=== PATIENT | male | born 1940 | race Caucasian/White ===

== ENCOUNTER → 2017-01-07 | Outpatient (CLI) | payer OTHER ==
[2017-01-07 13:55] LABS: ALT/SGPT 23 U/L (12-78); AST/SGOT 17 U/L (15-37); BLOOD UREA NITROGEN 14 mg/dl (7-18); BUN/CREATININE RATIO 16.4 (10-20); CALCIUM 9.3 mg/dl (8.5-10.1); CARBON DIOXIDE 29 mmol/L (21-32); CHLORIDE 99 mmol/L (98-107); CREATININE 0.88 mg/dl (0.60-1.40); GLUCOSE 99 mg/dl (70-99); POTASSIUM 3.9 mmol/L (3.5-5.1); SODIUM 137 mmol/L (136-145)
[2017-01-07 14:03] LABS: % FREE PSA 13.4 %; ALKALINE PHOSPHATASE 121 U/L (45-117); AMYLASE 44 U/L (25-115); CHOLESTEROL 135 mg/dl (0-200); CHOLESTEROL/HDL RATIO 3.5; FREE PSA 0.74 ng/ml; HDL CHOLESTEROL 39 mg/dl; LDL CHOLESTEROL CALCULATED 72 mg/dl; TRIGLYCERIDES 121 mg/dl (0-150); VERY LOW DENSITY LIPOPROT CALC 24 mg/dl
== END | disposition home or self-care (01) ==
LOC: C.LABMFLN 10:31
PROVIDERS: ATTEND Family Medicine
DX: E78.00 Pure hypercholesterolemia, unspecified (principal); I10 Essential (primary) hypertension; E03.9 Hypothyroidism, unspecified; R97.20 Elevated prostate specific antigen [PSA]; R11.0 Nausea; R63.4 Abnormal weight loss

== ENCOUNTER → 2017-05-12 | Outpatient (CLI) | payer OTHER ==
[2017-05-12 18:29] LABS: % FREE PSA 16.2 %; FREE PSA 0.88 ng/ml; PROSTATE SPECIFIC ANTIGEN 5.47 ng/ml (0.000-4.000)
[2017-05-12 20:06] LABS: LYME DISEASE AB IGG NEG (NEG); LYME DISEASE AB IGM NEG (NEG)
== END | disposition home or self-care (01) ==
LOC: C.LABMFLN 14:23
PROVIDERS: ATTEND Family Medicine
DX: L03.119 Cellulitis of unspecified part of limb (principal); R97.20 Elevated prostate specific antigen [PSA]

== ENCOUNTER → 2017-08-05 | Outpatient (CLI) | payer OTHER ==
[2017-08-05 13:43] LABS: ALT/SGPT 23 U/L (12-78); AST/SGOT 19 U/L (15-37); BLOOD UREA NITROGEN 20 mg/dl (7-18); BUN/CREATININE RATIO 20.1 (10-20); CALCIUM 9.4 mg/dl (8.5-10.1); CARBON DIOXIDE 26 mmol/L (21-32); CHLORIDE 98 mmol/L (98-107); CHOLESTEROL 132 mg/dl (0-200); CREATININE 0.97 mg/dl (0.60-1.40); GLUCOSE 94 mg/dl (70-99); POTASSIUM 4.2 mmol/L (3.5-5.1); SODIUM 134 mmol/L (136-145)
[2017-08-05 13:54] LABS: CHOLESTEROL/HDL RATIO 3.9; HDL CHOLESTEROL 34 mg/dl; LDL CHOLESTEROL CALCULATED 68 mg/dl; TRIGLYCERIDES 148 mg/dl (0-150); VERY LOW DENSITY LIPOPROT CALC 30 mg/dl
== END | disposition home or self-care (01) ==
LOC: C.LABMFLN 07:44
PROVIDERS: ATTEND Family Medicine
DX: E78.00 Pure hypercholesterolemia, unspecified (principal); I10 Essential (primary) hypertension; E03.9 Hypothyroidism, unspecified

== ENCOUNTER → 2017-12-23 | Outpatient (CLI) | payer OTHER ==
[2017-12-23 13:34] LABS: ALBUMIN 4.1 gm/dl (3.4-5.0); ALT/SGPT 28 U/L (12-78); AST/SGOT 21 U/L (15-37); BLOOD UREA NITROGEN 21 mg/dl (7-18); CALCIUM 9.6 mg/dl (8.5-10.1); CARBON DIOXIDE 27 mmol/L (21-32); CHOLESTEROL 162 mg/dl (0-200); CREATININE 0.99 mg/dl (0.60-1.40); GLUCOSE 96 mg/dl (70-99); POTASSIUM 3.9 mmol/L (3.5-5.1); SODIUM 135 mmol/L (136-145)
[2017-12-23 13:45] LABS: ALKALINE PHOSPHATASE 91 U/L (45-117); LDL CHOLESTEROL CALCULATED 88 mg/dl; TOTAL PROTEIN 8.7 gm/dl (6.4-8.2)
== END | disposition home or self-care (01) ==
LOC: C.LABMFLN 09:02
PROVIDERS: ATTEND Family Medicine
DX: E78.00 Pure hypercholesterolemia, unspecified (principal); I10 Essential (primary) hypertension; E03.9 Hypothyroidism, unspecified; W57.XXXA Bitten or stung by nonvenomous insect and other nonvenomous arthropods, initial encounter

== ENCOUNTER 2018-01-29 18:01 | Inpatient (IN) | payer OTHER ==
[~2018-01-29] VITALS: Ht 175.3 cm; Wt 79.3 kg
[2018-01-29] MEDS ORDERED: SODIUM CHLORIDE 0.9% 1000ML 1,000 ML IV STA ×2 (18:17→19:30)
--- NOTE | 2018-01-29 18:28 | EMERGENCY ROOM VISIT NOTE ---
History Report prepared by Roosevelt: Byron Tadeo Under the Supervision of: Dr. Mariano Wadsworth M.D. First contact with patient: 18:10 Chief Complaint: RECTAL BLEEDING Stated Complaint: RECTAL BLEEDING Nursing Triage Summary: Pt presents with and son. states small amt of rectal bleeding on Mon "just when he wipes". Started to get worse last night, having bright red blood every hour on the hour." Denies hx of GI bleed. Denies pain or n/v. History of Present Illness The patient is a 77 year old male who presents to the Emergency Room with complaints of worsening rectal bleeding that began 1 week ago. The patient has a fair amount of arthritis which he takes Meloxicam for (recently started). He notes black stools this week which started having blood in them. He saw his PCP earlier today who noted that he became orthostatic when standing. His rectal exam revealed that he became heme positive with an enlarged prostate. His PCP suggested that he be sent to the ED for further evaluation. The patient states that he has limited PO intake and that his back pain is unchanged from baseline. He takes Aspirin (81 mg). He denies Coumadin and Plavix. He denies nausea, vomiting, abdominal pain, recent falls, and injuries. He has a history significant for hemorrhoids, diverticulitis, and hernia repair. Of note, he had a colonoscopy in 2014. Source of History: patient, transfer records, family Onset: 1 week ago Position: other (rectum) Quality: other (bleeding) Timing: worsening Associated Symptoms: No nausea, No vomiting, No abdominal pain Note: Patient reports black stools with blood. Patient denies recent falls and injuries. Review of Systems See HPI for pertinent positives & negatives. A total of 10 systems reviewed and were otherwise negative. Past Medical & Surgical Medical Problems: (1) Diverticulitis (2) Hemorrhoid Surgical Problems: (1) Hx of hernia repair Family History Patient reports no known family medical history. Social History Smoking Status: Former Smoker Alcohol Use: none Drug Use: none Marital Status: Housing Status: lives with significant other Current/Historical Medications Scheduled Acetaminophen (Tylenol), 1,000 MG PO AMPM Amlodipine (Norvasc), 5 MG PO DAILY Ascorbic Acid (Vitamin C), 500 MG PO QPM Aspirin (Aspirin Ec), 81 MG PO QPM Atorvastatin (Lipitor), 20 MG PO QPM Azelastine Hcl (Astepro), 2 SPRY LILA DAILY Budesonide/Formoterol Fumarate (Symbicort 80/4.5 Inhaler), 2 PUFFS INH BID Levothyroxine Sodium (Synthroid), 100 MCG PO DAILY Meloxicam (Mobic), 1 TAB PO DAILY Omeprazole (Prilosec), 40 MG PO DAILY Prednisolone Acetate (Ophth) (Pred Forte 1% Oph), 1 DROPS OPL BID Sertraline (Zoloft), 50 MG PO QPM Vitamin E (E-400), 400 UNITS PO DAILY Allergies Coded Allergies: No Known Allergies (Unverified , 01/29/18) Physical Exam Vital Signs Date Time Temp Pulse Resp B/P (MAP) Pulse Ox O2 Delivery O2 Flow Rate FiO2 01/29/18 20:27 65 20 124/84 93 Room Air 01/29/18 20:26 66 01/29/18 18:59 69 20 133/74 95 Room Air 67 136/84 92 92/68 01/29/18 18:04 36.6 86 18 126/81 94 Room Air Physical Exam GENERAL: Patient is well appearing and in no acute distress. EYES: No scleral icterus, unremarkable pupils. ENT: Mucous membranes moist, no nasal congestion. NECK: No masses appreciated, no meningismus, trachea is midline. RESPIRATORY: No dyspnea. Clear to auscultation and equal bilaterally. No wheeze , no rhonchi. CARDIOVASCULAR: Regular rate and rhythm. No murmurs, rubs, gallops appreciated. GASTROINTESTINAL: Abdomen soft, nontender, no peritonitis. Bowel sounds positive. No masses appreciated. BACK: No midline tenderness, no CVA tenderness EXTREMITIES: Normal motion all extremities, no cyanosis, no edema. NEUROLOGIC: Alert and oriented, no acute motor or sensory deficits, no focal weakness, cranial nerves grossly intact. SKIN: No rash, no jaundice, no diaphoresis. Medical Decision & Procedures Laboratory Results Test 01/29/18 18:45 Prothrombin Time 10.1 SECONDS (9.0-12.0) Prothromb Time International Ratio 1.0 (0.9-1.1) Activated Partial Thromboplast Time 26.8 SECONDS (21.0-31.0) Partial Thromboplastin Ratio 1.0 Direct Bilirubin < 0.1 mg/dl (0-0.2) Laboratory results as reviewed by ri. Medications Administered Medications (Trade) Dose Ordered Sig/Angy Route Start Time Stop Time Status Last Admin Dose Admin Sodium Chloride 1,000 ml @ 999 mls/hr Q1H1M STAT IV 01/29/18 18:17 01/29/18 19:17 DC 01/29/18 19:00 999 MLS/HR Pantoprazole Sodium 40 mg/ Syringe 10 ml @ 5 mls/min NOW ONCE IV 01/29/18 18:30 01/29/18 18:31 DC 01/29/18 19:02 5 MLS/MIN Sodium Chloride 1,000 ml @ 100 mls/hr Q10H STAT IV 01/29/18 19:30 01/29/18 22:07 DC 01/29/18 20:25 100 MLS/HR Pantoprazole Sodium 40 mg/ Dextrose 110 ml @ 440 mls/hr TODAY@1945 ONCE IV 01/29/18 19:45 01/29/18 19:59 DC 01/29/18 20:24 440 MLS/HR Pantoprazole Sodium 40 mg/ Dextrose 100 ml @ 20 mls/hr Q5H IV 01/29/18 19:45 01/30/18 00:44 DC 01/29/18 20:24 20 MLS/HR ECG Per My Interpretation Indication: other (Rectal bleeding) Rate (beats per minute): 65 Rhythm: normal sinus Findings: 1st degree AV block, no acute ischemic change, no ectopy, other (QTc of 422) ED Course 1809: The patient was evaluated in room B4. A complete history and physical exam was performed. 1938: Discussed the patient's case with Dr. Kyara Travis. The patient will be evaluated for further treatment and disposition. 1954: Upon reevaluation, the patient is resting comfortably. Discussed results and treatment plan with the patient. He verbalized understanding and agreement with the treatment plan. The patient will be evaluated for further management. Medical Decision Differential: Diverticulitis, AVM, Coagulopathy, Colitis, Malignancy, Upper GI bleed, Fissure, Hemorrhoids, amongst other pathologies entertained. 77 yr old male arrives for evaluation of rectal bleeding. Reviewed with his PCP who sent him over prior to patient arriving. Patient is orthostatic with large bloody bowel movements following starting Mobic 2 weeks ago. He initially had black stool turning in to bloody thus the Protonix bolus but given BRBPR there is chance this is just a higher up diverticular bleed ( especially given baseline BUN). Regardless he is stable while in bed, was given some IV fluids and looking well. Will be kept NPO. Reviewed with GI who asked I add on Protonix gtt, keep NPO, admit to hospitalist and repeat HgB 6 hours from initial. Patient and family comfortable with this plan. Type/Cross ordered with hold as not requiring transfusion just yet. Medication Reconcilliation Current Medication List: was personally reviewed by me Blood Pressure Screening Patient's blood pressure: Normal blood pressure Blood pressure disposition: Did not require urgent referral Consults Time Called: 1934 Consulting Physician: Dr. Kyara Travis Returned Call: 1938 Discussed the patient's case. The patient will be evaluated for further treatment and disposition. Impression Primary Impression: GI bleed Additional Impression: Hypotension Scribe Attestation The scribe's documentation has been prepared under my direction and personally reviewed by me in its entirety. I confirm that the note above accurately reflects all work, treatment, procedures, and medical decision making performed by me. Departure Information Dispostion Being Evaluated By Hospitalist Referrals Estevan Trejo M.D. (PCP) Patient Instructions My [facility] Problem Qualifiers
[2018-01-29] MEDS ORDERED: PANTOprazole INJ 40 MG in SYRINGE 0 ML IV ONE (18:30)
[2018-01-29 19:02] LABS: BASO % 0.9 %; BASO ABS # 0.08 K/uL (0-0.2); EOS ABS # 0.27 K/uL (0-0.5); HEMATOCRIT 43.1 % (42-52); HEMOGLOBIN 15.2 g/dL (14.0-18.0); IG# 0.03 K/uL (0.00-0.02); MEAN CELL VOLUME 89.6 fL (80-100); MEAN CORPUSCULAR HEMOGLOBIN 31.6 pg (25-34); MEAN CORPUSCULAR HGB CONC 35.3 g/dl (32-36); MEAN PLATELET VOLUME 8.7 fL (7.4-10.4); MONO % 9.1 %; MONO ABS # 0.83 K/uL (0.11-0.59); NEUT % 63.7 %; NEUT ABS # 5.84 K/uL (1.4-6.5); PLATELET COUNT 291 K/uL (130-400); RED CELL DISTRIBUTION WIDTH CV 13.1 % (11.5-14.5); WHITE BLOOD COUNT 9.15 K/uL (4.8-10.8)
[2018-01-29 19:19] LABS: PTT PATIENT 26.8 SECONDS (21.0-31.0)
[2018-01-29 19:27] LABS: ALT/SGPT 27 U/L (12-78); AST/SGOT 19 U/L (15-37); BLOOD UREA NITROGEN 20 mg/dl (7-18); CALCIUM 8.9 mg/dl (8.5-10.1); CARBON DIOXIDE 26 mmol/L (21-32); CREATININE 1.04 mg/dl (0.60-1.40); GLUCOSE 110 mg/dl (70-99); POTASSIUM 3.9 mmol/L (3.5-5.1); SODIUM 137 mmol/L (136-145)
[2018-01-29 19:29] LABS: ALKALINE PHOSPHATASE 110 U/L (45-117); TOTAL PROTEIN 7.7 gm/dl (6.4-8.2)
[2018-01-29] MEDS ORDERED: PANTOprazole INJ 40 MG in DEXTROSE 5% 100ML 100 ML IV ONE (19:45)
[2018-01-29] MEDS ORDERED: PANTOprazole INJ 40 MG in DEXTROSE 5% 100ML IV SCH (19:45)
[2018-01-29] MEDS ORDERED: MAGNESIUM HYDROXIDE SUSP 30 ML UDC PO PRN (20:15)
[2018-01-29] MEDS ORDERED: ACETAMINOPHEN 325 MG TAB PO PRN (20:15)
[2018-01-29] MEDS ORDERED: ONDANSETRON INJ 2 MG/ML 2 ML VIAL IV PRN (20:15)
[2018-01-29] MEDS ORDERED: ALUMINUM/MAGNESIUM/SIMETH (MAALOX MAX) 30 ML UDC PO PRN (20:15)
[2018-01-29] MEDS ORDERED: PRED1SUS3 OPL (20:25)
[2018-01-29] MEDS ORDERED: AZEL0.15 NAE (20:35)
[2018-01-29] MEDS ORDERED: OMEP40CA41 PO (20:35)
[2018-01-29] MEDS ORDERED: ACET-1256 PO (20:35)
[2018-01-29] MEDS ORDERED: ASPI81TA28 PO (20:35)
[2018-01-29] MEDS ORDERED: SYMIN/8045 INH (20:35)
[2018-01-29] MEDS ORDERED: ASCO1CAP3 PO (20:35)
[2018-01-29] MEDS ORDERED: VITACAP37 PO (20:35)
[2018-01-29] MEDS ORDERED: AMLO-110 PO (20:35)
[2018-01-29] MEDS ORDERED: LEVO100T PO (20:35)
[2018-01-29] MEDS ORDERED: SERT50TA PO (20:35)
[2018-01-29] MEDS ORDERED: MELO7.5T5 PO (20:35)
[2018-01-29] MEDS ORDERED: ATOR-22 PO (20:35)
[2018-01-29 20:41] LABS: HEMATOCRIT 38.1 % (42-52); HEMOGLOBIN 13.4 g/dL (14.0-18.0)
--- NOTE | 2018-01-29 21:25 | History and Physical ---
History & Physical Date & Time of Service: Jan 29, 2018 at 21:01 Chief Complaint: Rectal Bleeding Primary Care Physician: Estevan Trejo M.D. History of Present Illness Source: patient, family, clinic records, hospital records 77 yo M h/o GERD on omeprazole, HTN on amlodipine Arthritis, recently started Meloxicam presenting with blood stool. Initially stool was red then eventually black. HE reports 11 blood stools in all since last night. 4 days ago had red blood in tissue but has since resolved. He denies pain, n/v, fevers, chills, Chest pain, palpitation no previous similar episodes. He takes ASA 81 mg. He is not on any other anticoagulation. He was started on Meloxicam 2 wks ago. Saw pcp at 4 pm today ( Dr. Trejo [facility]). He told patient he was suspected meloxicam as potential contributor and recommended to go to ED. He also reports some lightheadedness while at the clinic when going from sitting to standing position. He reports occasional SOB but attributes to asthma. In 2014 Colonoscopy, patient reports he had polyps removed and diverticulosis were found. Past Medical/Surgical History Medical Problems: Diverticulitis Hemorrhoid Asthma Hypertension HLD Hypothyroidism GERD Arthritis Depression Surgical Problems: Hx of hernia repair Cataract Surgery Shoulder Surgery Social History Smoking Status: Former Smoker Alcohol Use: none Drug Use: none Marital Status: Housing status: lives with family Occupational Status: retired Allergies Coded Allergies: No Known Allergies (Unverified , 01/29/18) Home Medications Scheduled Acetaminophen (Tylenol), 1,000 MG PO AMPM Amlodipine (Norvasc), 5 MG PO DAILY Ascorbic Acid (Vitamin C), 500 MG PO QPM Aspirin (Aspirin Ec), 81 MG PO QPM Atorvastatin (Lipitor), 20 MG PO QPM Azelastine Hcl (Astepro), 2 SPRY LILA DAILY Budesonide/Formoterol Fumarate (Symbicort 80/4.5 Inhaler), 2 PUFFS INH BID Levothyroxine Sodium (Synthroid), 100 MCG PO DAILY Meloxicam (Mobic), 1 TAB PO DAILY Omeprazole (Prilosec), 40 MG PO DAILY Prednisolone Acetate (Ophth) (Pred Forte 1% Oph), 1 DROPS OPL BID Sertraline (Zoloft), 50 MG PO QPM Vitamin E (E-400), 400 UNITS PO DAILY Review of Systems Constitutional: No fever, No chills, No weakness, No fatigue Respiratory: + shortness of breath (occasional (at baseline)), No cough, No sputum Cardiovascular: No chest pain, No edema, No palpitations Abdomen: + GI bleeding, No pain, No nausea, No vomiting, No diarrhea Genitourinary - Male: No hematuria, No dysuria, No urinary frequency Hematologic / Lymphatic: + abnormal bleeding/bruising (GI Bleed) Integumentary: No rash, No itch Physical Exam Vital Signs Date Time Temp Pulse Resp B/P (MAP) Pulse Ox O2 Delivery O2 Flow Rate FiO2 01/29/18 20:27 65 20 124/84 93 Room Air 01/29/18 20:26 66 01/29/18 18:59 69 20 133/74 95 Room Air 67 136/84 92 92/68 01/29/18 18:04 36.6 86 18 126/81 94 Room Air General Appearance: WD/WN, no apparent distress Eyes: PERRL, EOMI, sclerae normal Neck: supple, no adenopathy, trachea midline Respiratory/Chest: chest non-tender, lungs clear, normal breath sounds Cardiovascular: regular rate, rhythm, no edema, no murmur, normal peripheral pulses Abdomen/GI: normal bowel sounds, non tender, soft, no organomegaly Back: normal inspection, normal range of motion Extremities/Musculoskelatal: no calf tenderness, normal capillary refill, no pedal edema Neurologic/Psych: camp head counselor II-XII nml as tested (gross), alert, normal mood/affect, oriented x 3 Skin: normal color, warm/dry Diagnostics Laboratory Results Results Past 24 Hours Test 01/29/18 18:45 01/29/18 20:20 Range/Units White Blood Count 9.15 4.8-10.8 K/uL Red Blood Count 4.81 4.7-6.1 M/uL Hemoglobin 15.2 13.4 14.0-18.0 g/dL Hematocrit 43.1 38.1 42-52 % Mean Corpuscular Volume 89.6 80-100 fL Mean Corpuscular Hemoglobin 31.6 25-34 pg Mean Corpuscular Hemoglobin Concent 35.3 32-36 g/dl Platelet Count 291 130-400 K/uL Mean Platelet Volume 8.7 7.4-10.4 fL Neutrophils (%) (Auto) 63.7 % Lymphocytes (%) (Auto) 23.0 % Monocytes (%) (Auto) 9.1 % Eosinophils (%) (Auto) 3.0 % Basophils (%) (Auto) 0.9 % Neutrophils # (Auto) 5.84 1.4-6.5 K/uL Lymphocytes # (Auto) 2.10 1.2-3.4 K/uL Monocytes # (Auto) 0.83 0.11-0.59 K/uL Eosinophils # (Auto) 0.27 0-0.5 K/uL Basophils # (Auto) 0.08 0-0.2 K/uL RDW Standard Deviation 43.0 36.4-46.3 fL RDW Coefficient of Variation 13.1 11.5-14.5 % Immature Granulocyte % (Auto) 0.3 % Immature Granulocyte # (Auto) 0.03 0.00-0.02 K/uL Prothrombin Time 10.1 9.0-12.0 SECONDS Prothromb Time International Ratio 1.0 0.9-1.1 Activated Partial Thromboplast Time 26.8 21.0-31.0 SECONDS Partial Thromboplastin Ratio 1.0 Sodium Level 137 136-145 mmol/L Potassium Level 3.9 3.5-5.1 mmol/L Chloride Level 104 98-107 mmol/L Carbon Dioxide Level 26 21-32 mmol/L Anion Gap 7.0 3-11 mmol/L Blood Urea Nitrogen 20 7-18 mg/dl Creatinine 1.04 0.60-1.40 mg/dl Est Creatinine Clear Calc Drug Dose 59.5 ml/min Estimated GFR () 79.9 Estimated GFR (Non- 68.9 BUN/Creatinine Ratio 19.2 10-20 Random Glucose 110 70-99 mg/dl Calcium Level 8.9 8.5-10.1 mg/dl Total Bilirubin 0.4 0.2-1 mg/dl Direct Bilirubin < 0.1 0-0.2 mg/dl Aspartate Amino Transf (AST/SGOT) 19 15-37 U/L Alanine Aminotransferase (ALT/SGPT) 27 12-78 U/L Alkaline Phosphatase 110 45-117 U/L Total Protein 7.7 6.4-8.2 gm/dl Albumin 4.0 3.4-5.0 gm/dl Impression Assessment and Plan 77 yo M h/o GERD on omeprazole, HTN on amlodipine Arthritis, recently started Meloxicam presenting with blood stool Admit to Tele - GI Bleed likely upper given black stool and recent start of new NSAID Gastritis vs Ulcer, lack of pain makes ulcer less likely, varices unlikely given normal lfts. Recent start of Meloxicam could indicate NSAID Hold Meloxicam Start Protonix drip Gastroenterology consulted. F/u recommendation IV NS at 100 ( 2 L) H/H q6 Blood typed and crossed, 3 units on hold Transfuse for Hb <7 Orthostasis: likely secondary to reduced blood volume hold amlodipine IV fluids as above Hypothyroid: Synthroid Arthritis: hold meloxicam as above HTN: hold Amlodipine as above Depression: restart sertraline Asthma: Ventolin, montelukast DVT Prophylaxis: Chemical prophylaxis contraindicated due to GI Bleed SCD's Code: Full Resuscitation Disposition: Admit to Telemetry Resuscitation Status VTE Prophylaxis Will order VTE Prophylaxis: Yes Reason for no VTE drug order: Contraindicated Social Service Consult None Apply Note Total Time: Critical Care 30 - 74 minutes Resident Tracking Resident Involvement: Resident Care Provided Care Provided: Adult Hospital Medicine History Patient seen and examined, chart reviewed, case discussed with Dr. Torres and I agree with his assessment and plan as documented above. Briefly, patient is a 77yo C male with history of GERD, HTN and recently started on Mobic who presents with one day of melenic stools and BRBPR. He reports 11 total bloody bowel movements in the last day. He denies n/v/abdominal pain, no history of prior GIB, no anticoagulation, no history of liver disease. He had a colonoscopy in 2014 which revealed polyps and diverticulosis and told to followup in 3 years. On exam he is afebrile, hemodynamically stable with positive orthostatic vital signs. He is well appearing in NAD. HEENT exam unremarkable with no pallor. Heart +S1/S2, regular, no m/r/g, lungs CTA, no rales/rhonchi or wheezes. Abdomen benign. Labs significant for Hg=15.2 --> 13.4 and Hct 43.1 --> 38.1. INR=1 Platelets= 291, BUN=20, Cr=1.02. LFTs WNL. Remainder of labs unremarkable Assessment: 77yo male presenting with GIB in setting of NSAID use 1. GIB - suspect UGIB -NPO, trend H/H q 6 hours. Transfuse if <05/22 or actively bleeding or symptomatic -Protonix gtt started -EGD in AM, GI aware 2. GERD - stable -Protonix gtt as above 3. HTN - stable. Holding antihypertensive agents in setting of acute UGIB 4. Hypothyroidism - stable. Continue Synthroid Remaider of plan per PGY2 note
[2018-01-29 22:00] VITALS: BP 144/79; PULSE 71; TEMP 36.4; O2SAT 93; Ht 175.3 cm; Wt 79.3 kg
[2018-01-29] MEDS: ATORVASTATIN 20 MG TAB PO SCH (22:57)
[2018-01-29] MEDS: SERTRALINE HCL 50 MG TAB PO SCH (22:57)
[2018-01-29] MEDS: BUDESONIDE/FORMOTEROL FUMARATE 80/4.5 60 PUFFS/INHALER INH SCH (22:57)
[2018-01-29] MEDS: SODIUM CHLORIDE 0.9% 1000ML 1,000 ML IV SCH (22:58)
[2018-01-29] MEDS: PrednisoLONE ACET 1% OP SUSP 5 ML BTL OPL SCH (23:00)
[2018-01-30] VITALS (11 sets, daily range): BP systolic 107–159; BP diastolic 62–76; PULSE 64–84; TEMP 36.3–36.9; O2SAT 93–96
[2018-01-30] MEDS: PANTOprazole INJ 40 MG in DEXTROSE 5% 100ML 100 ML IV SCH ×3 (00:38→11:20)
[2018-01-30 02:19] LABS: BASO % 0.7 %; BASO ABS # 0.05 K/uL (0-0.2); EOS % 3.4 %; EOS ABS # 0.26 K/uL (0-0.5); HEMOGLOBIN 12.7 g/dL (14.0-18.0); IG# 0.04 K/uL (0.00-0.02); MEAN CELL VOLUME 89.1 fL (80-100); MEAN CORPUSCULAR HEMOGLOBIN 31.4 pg (25-34); MEAN CORPUSCULAR HGB CONC 35.3 g/dl (32-36); MEAN PLATELET VOLUME 8.3 fL (7.4-10.4); MONO % 8.1 %; MONO ABS # 0.62 K/uL (0.11-0.59); NEUT % 66.3 %; NEUT ABS # 5.06 K/uL (1.4-6.5); PLATELET COUNT 230 K/uL (130-400); RED CELL DISTRIBUTION WIDTH CV 13.3 % (11.5-14.5); RED CELL DISTRIBUTION WIDTH SD 43.5 fL (36.4-46.3); WHITE BLOOD COUNT 7.63 K/uL (4.8-10.8)
[2018-01-30 02:38] LABS: CALCIUM 7.9 mg/dl (8.5-10.1); CREATININE 0.94 mg/dl (0.60-1.40); POTASSIUM 3.6 mmol/L (3.5-5.1)
[2018-01-30 02:48] LABS: TOTAL PROTEIN 6.4 gm/dl (6.4-8.2)
[2018-01-30] MEDS: LEVOTHYROXINE 100 MCG TAB PO SCH (06:30)
--- NOTE | 2018-01-30 08:30 | Gastrointestinal Consultation ---
Gastrointestinal Consultation Date of Consultation: Jan 30, 2018 Attending Physician: Kenny Edmond MD Consulting Physician: Kyara Travis Reason for Consultation: GI Bleed History of Present Illness Patient is a 77 year old male with medical comorbids of HTN, Arthritis, recently started Meloxicam, GERD on Prilosec, presented to the hospital with rectal bleeding that started 2 days ago, initially dark red blood and now with few clots and melanotic. He denies any abdominal pain, nausea, vomiting or hematemesis. No similar episodes in the past. He had orthostasis in the ED. Last cpolonoscopy in 2014 with few small polyps, diverticulosis and hemorrhoids. No prior EGD. Ne fever, weight loss or jaundice. Past Medical/Surgical History Medical Problems: (1) GI bleed Status: Acute (2) Hypotension Status: Acute Family History Patient reports no known family medical history. Social History Smoking Status: Unknown if Ever Smoked Alcohol Use: none Drug Use: none Marital Status: Housing Status: lives with significant other Occupation Status: retired Allergies Coded Allergies: No Known Allergies (Unverified , 01/29/18) Current Medications Home Meds and Scripts Medications Dose Route/Sig Max Daily Dose Days Date Category Tylenol (Acetaminophen) 500 Mg Tab 1,000 Mg PO AMPM 01/29/18 Reported Mobic (Meloxicam) Unknown Strength Tab 1 Tab PO DAILY 01/29/18 Reported Symbicort 80/4.5 Inhaler (Budesonide/Formoterol Fumarate) Aero 2 Puffs INH BID 01/29/18 Reported Synthroid (Levothyroxine Sodium) 100 Mcg Tab 100 Mcg PO DAILY 01/29/18 Reported Norvasc (Amlodipine Besylate) 5 Mg Tab 5 Mg PO DAILY 01/29/18 Reported Lipitor (Atorvastatin Calcium) 20 Mg Tab 20 Mg PO QPM 01/29/18 Reported Zoloft (Sertraline HCl) 50 Mg Tab 50 Mg PO QPM 01/29/18 Reported Vitamin C (Ascorbic Acid) 500 Mg Cap 500 Mg PO QPM 01/29/18 Reported Aspirin Ec (Aspirin) 81 Mg Tab 81 Mg PO QPM 01/29/18 Reported E-400 (Vitamin E) 400 Unit Cap 400 Units PO DAILY 01/29/18 Reported Astepro (Azelastine Hcl) 0.15 % Spr 2 [place] LILA DAILY 30 01/29/18 Reported Prilosec (Omeprazole) 40 Mg Cap 40 Mg PO DAILY 01/29/18 Reported Pred Forte 1% Oph (Prednisolone Acetate (Ophth)) 1 % [place] 1 Drops OPL BID 01/29/18 Reported Review of Systems Constitutional: No fever, No chills Eyes: No worsening of vision, No eye pain ENT: No hearing loss, No unusual epistaxis Respiratory: No cough, No sputum, No wheezing Cardiac: No chest pain, No orthopnea Abdomen: + see HPI Musculoskeletal: No muscle pain, No swelling Male : No dysuria, No urinary frequency Neuro: No memory loss, No weakness Psych: No depression symptoms, No anxiety Heme: No abnormal bleeding/bruising, No clotting problems Endo: No fatigue Skin: No rash, No itch Physical Exam Date Time Temp Pulse Resp B/P (MAP) Pulse Ox O2 Delivery O2 Flow Rate FiO2 01/30/18 07:30 95 Room Air 01/30/18 07:05 36.7 64 16 120/69 (86) 95 Room Air 01/30/18 04:00 36.6 64 20 116/68 (84) 93 Room Air 01/30/18 04:00 Room Air 01/30/18 00:00 36.6 66 20 134/74 (94) 93 Room Air 69 109/62 (78) 75 107/69 (82) 01/30/18 00:00 Room Air 01/29/18 22:00 36.4 71 18 144/79 93 Room Air 01/29/18 21:13 67 18 137/85 94 Room Air 01/29/18 20:27 65 20 124/84 93 Room Air 01/29/18 20:26 66 01/29/18 18:59 69 20 133/74 95 Room Air 67 136/84 92 92/68 01/29/18 18:04 36.6 86 18 126/81 94 Room Air General Appearance: no apparent distress Eyes: PERRL ENT: pharynx normal Neck: supple, no JVD Respiratory/Chest: lungs clear, normal breath sounds Cardiovascular: regular rate, rhythm, no edema Abdomen: normal bowel sounds, non tender, soft Neurologic/Psych: no motor/sensory deficits, oriented x 3 Skin: normal color, no jaundice Rectal exam: Small hemorrhoids, Maroon colored stool. Laboratory Results Last 24 Hours Test 01/29/18 18:45 01/29/18 20:20 01/30/18 02:06 01/30/18 08:14 White Blood Count 9.15 K/uL 7.63 K/uL Red Blood Count 4.81 M/uL 4.04 M/uL Hemoglobin 15.2 g/dL 13.4 g/dL 12.7 g/dL Hematocrit 43.1 % 38.1 % 36.0 % Mean Corpuscular Volume 89.6 fL 89.1 fL Mean Corpuscular Hemoglobin 31.6 pg 31.4 pg Mean Corpuscular Hemoglobin Concent 35.3 g/dl 35.3 g/dl Platelet Count 291 K/uL 230 K/uL Mean Platelet Volume 8.7 fL 8.3 fL Neutrophils (%) (Auto) 63.7 % 66.3 % Lymphocytes (%) (Auto) 23.0 % 21.0 % Monocytes (%) (Auto) 9.1 % 8.1 % Eosinophils (%) (Auto) 3.0 % 3.4 % Basophils (%) (Auto) 0.9 % 0.7 % Neutrophils # (Auto) 5.84 K/uL 5.06 K/uL Lymphocytes # (Auto) 2.10 K/uL 1.60 K/uL Monocytes # (Auto) 0.83 K/uL 0.62 K/uL Eosinophils # (Auto) 0.27 K/uL 0.26 K/uL Basophils # (Auto) 0.08 K/uL 0.05 K/uL RDW Standard Deviation 43.0 fL 43.5 fL RDW Coefficient of Variation 13.1 % 13.3 % Immature Granulocyte % (Auto) 0.3 % 0.5 % Immature Granulocyte # (Auto) 0.03 K/uL 0.04 K/uL Prothrombin Time 10.1 SECONDS Prothromb Time International Ratio 1.0 Activated Partial Thromboplast Time 26.8 SECONDS Partial Thromboplastin Ratio 1.0 Sodium Level 137 mmol/L 138 mmol/L Potassium Level 3.9 mmol/L 3.6 mmol/L Chloride Level 104 mmol/L 106 mmol/L Carbon Dioxide Level 26 mmol/L 25 mmol/L Anion Gap 7.0 mmol/L 7.0 mmol/L Blood Urea Nitrogen 20 mg/dl 20 mg/dl Creatinine 1.04 mg/dl 0.94 mg/dl Est Creatinine Clear Calc Drug Dose 59.5 ml/min 65.8 ml/min Estimated GFR () 79.9 90.3 Estimated GFR (Non- 68.9 77.9 BUN/Creatinine Ratio 19.2 20.8 Random Glucose 110 mg/dl 118 mg/dl Calcium Level 8.9 mg/dl 7.9 mg/dl Total Bilirubin 0.4 mg/dl 0.5 mg/dl Direct Bilirubin < 0.1 mg/dl Aspartate Amino Transf (AST/SGOT) 19 U/L 16 U/L Alanine Aminotransferase (ALT/SGPT) 27 U/L 21 U/L Alkaline Phosphatase 110 U/L 80 U/L Total Protein 7.7 gm/dl 6.4 gm/dl Albumin 4.0 gm/dl 3.0 gm/dl Globulin 3.4 gm/dl Albumin/Globulin Ratio 0.9 Impression Patient is a 77 year old male with Hx of GERD on PPI, recently started NSAIDs for arthritis, Hx of Diverticulosis on last colonoscopy, presented with rectal bleeding, maroon colored stool without abdominal pain. Hct dropped and BUN is elevated. DDx: UGIB due to PUD and Diverticular bleed. Plan Will plan for EGD this afternoon. Keep NPO. IV PPI drip. Avoid NSAIDs. Monitor H/H. Based on EGD results will decide about colonoscopy. Patient was explained about risk, benefit and alternatives of the procedure and agrees.
[2018-01-30 08:31] LABS: HEMATOCRIT 34.4 % (42-52)
[2018-01-30] MEDS: BUDESONIDE/FORMOTEROL FUMARATE 80/4.5 60 PUFFS/INHALER INH SCH ×2 (08:35→21:35)
[2018-01-30] MEDS: PrednisoLONE ACET 1% OP SUSP 5 ML BTL OPL SCH ×2 (08:36→21:34)
[2018-01-30] MEDS: SODIUM CHLORIDE 0.9% 1000ML 1,000 ML IV SCH (09:02)
[2018-01-30] MEDS ORDERED: EpHEDrine SULFATE INJ 50 MG/ML AMP IV PRN (09:15)
[2018-01-30] MEDS ORDERED: FENTANYL CITRATE INJ 50 MCG/1 ML 2 ML VIAL IV PRN (09:15)
[2018-01-30] MEDS ORDERED: PHENYLEPHRINE 100MCG/ML 5ML SYR IV PRN (09:15)
[2018-01-30] MEDS ORDERED: HYDROmorphone INJ 2 MG/ML SYR/VIAL IV PRN (09:15)
[2018-01-30] MEDS ORDERED: ONDANSETRON INJ 2 MG/ML 2 ML VIAL IV PRN (09:15)
[2018-01-30] MEDS ORDERED: NALOXONE HCL 0.4 MG/1 ML VIAL/CARP IV PRN (09:15)
[2018-01-30] MEDS ORDERED: MEPERIDINE HCL 25 MG/ML CARP IV PRN (09:15)
[2018-01-30] MEDS ORDERED: LABETALOL HCL IV 5 MG/ML 20ML IV PRN (09:15)
[2018-01-30] MEDS ORDERED: ATROPINE SULFATE 0.1 MG/ML 5ML SYR IV PRN (09:15)
[2018-01-30] MEDS ORDERED: FLUMAZENIL 0.1 MG/1 ML 10 ML VIAL IV PRN (09:15)
[2018-01-30] MEDS ORDERED: PROPOFOL IV EMULSION 10 MG/ML 20 ML VIAL IV ONE (13:06)
[2018-01-30] MEDS ORDERED: LIDOCAINE HCL 2% 2 ML VIAL (20MG/ML) ONE (13:06)
--- NOTE | 2018-01-30 13:21 | GI REPORT ---
Procedure Date: 01/30/2018 1:02 PM Procedure: Upper GI endoscopy Indications: Hematochezia Medicines: Monitored Anesthesia Care Complications: No immediate complications. Estimated Blood Loss: Estimated blood loss: none. Procedure: Pre-Anesthesia Assessment: - Prior to the procedure, a History and Physical was performed, and patient medications and allergies were reviewed. The patient is competent. The risks and benefits of the procedure and the sedation options and risks were discussed with the patient. All questions were answered and informed consent was obtained. Patient identification and proposed procedure were verified by the physician and the nurse in the procedure room. Mental Status Examination: alert and oriented. Airway Examination: normal oropharyngeal airway and neck mobility. Respiratory Examination: clear to auscultation. CV Examination: normal. ASA Grade Assessment: III - A patient with severe systemic disease. After reviewing the risks and benefits, the patient was deemed in satisfactory condition to undergo the procedure. The anesthesia plan was to use monitored anesthesia care (MAC). Immediately prior to administration of medications, the patient was re-assessed for adequacy to receive sedatives. The heart rate, respiratory rate, oxygen saturations, blood pressure, adequacy of pulmonary ventilation, and response to care were monitored throughout the procedure. The physical status of the patient was re-assessed after the procedure. After obtaining informed consent, the endoscope was passed under direct vision. Throughout the procedure, the patient's blood pressure, pulse, and oxygen saturations were monitored continuously. The Scope was introduced through the mouth, and advanced to the second part of duodenum. The upper GI endoscopy was accomplished without difficulty. The patient tolerated the procedure well. Findings: The examined esophagus was normal. The entire examined stomach was normal. The duodenal bulb and second portion of the duodenum were normal. Impression: - Normal esophagus. - Normal stomach. - Normal duodenal bulb and second portion of the duodenum. - No specimens collected. Recommendation: - Clear liquid diet. - Start Golytely 4L for bwoel preparation for colonoscopy. - Perform a colonoscopy tomorrow. - Monitor H/H. Kenny Edmond MD 01/30/2018 1:20:50 PM This report has been signed electronically. Note Initiated On: 01/30/2018 1:02 PM I attest to the content of the Intraoperative Record and orders documented therein, exceptions below
--- NOTE | 2018-01-30 13:22 | [facility] Post Operative Brief Note ---
Immediate Operative Summary Operative Date Jan 30, 2018. Pre-Operative Diagnosis Possible Gastrointestinal Bleed Post-Operative Diagnosis Rectal Bleeding Procedure(s) Performed Esophagogastroduodenoscopy Surgeon Dr. Doreen Edmond [place] Surgeon(s) none Estimated Blood Loss 0mL Findings See Below Normal exam Specimens per endoscopy staff Anesthesia Type MAC
--- NOTE | 2018-01-30 13:46 | Anesthesiology Progress Note ---
Anesthesia Post Op Note Date & Time Jan 30, 2018 at 13:46 Vital Signs Pain Intensity: 0 Vital Signs Past 12 Hours Date Time Temp Pulse Resp B/P (MAP) Pulse Ox O2 Delivery O2 Flow Rate FiO2 01/30/18 13:35 67 20 131/72 94 Room Air 01/30/18 13:25 36.6 70 20 127/72 93 Room Air 01/30/18 11:31 36.9 64 16 125/67 (86) 94 Room Air 01/30/18 11:30 94 Room Air 01/30/18 07:30 95 Room Air 01/30/18 07:05 36.7 64 16 120/69 (86) 95 Room Air 01/30/18 04:00 36.6 64 20 116/68 (84) 93 Room Air 01/30/18 04:00 Room Air Notes Mental Status: alert / awake / arousable, participated in evaluation Pt Amnestic to Procedure: Yes Nausea / Vomiting: adequately controlled Pain: adequately controlled Airway Patency, RR, SpO2: stable & adequate BP & HR: stable & adequate Hydration State: stable & adequate Anesthetic Complications: no major complications apparent
[2018-01-30] MEDS ORDERED: LAVAGE SOLUTION 4000ML PO SCH (14:00)
[2018-01-30 14:20] LABS: HEMATOCRIT 34.2 % (42-52); HEMOGLOBIN 11.9 g/dL (14.0-18.0)
--- NOTE | 2018-01-30 15:17 | Gastroenterology Progress Note ---
Gastroenterology Progress Note EGD is unremarkable, likely has lower GI bleeding, possibly diverticular. Will give bowel prep today with Golytely and do colonoscopy tomorrow at 7:30AM
--- NOTE | 2018-01-30 15:36 | Progress Note ---
Subjective Date of Service: Jan 30, 2018. Subjective Pt evaluation today including: conversation w/ patient, physical exam, chart review, lab review, review of studies, review of inpatient medication list Pain: No pain reported. PO Intake: N.p.o. for procedure Voiding: no voiding problems Patient is seen and examined by me. Patient denies chest pain, shortness of breath, dizziness, palpitation or loss of consciousness. Patient denies abdominal pain, nausea, vomiting and diarrhea. Patient does not have any episode of bleeding per rectum. Patient is n.p.o. for EGD. Problem List Medical Problems: (1) GI bleed Status: Acute (2) Hypotension Status: Acute Review of Systems All Other Systems: Reviewed and Negative Medications Medications (Trade) Dose Ordered Sig/Angy Route Start Time Stop Time Status Last Admin Dose Admin Sodium Chloride 1,000 ml @ 999 mls/hr Q1H1M STAT IV 01/29/18 18:17 01/29/18 19:17 DC 01/29/18 19:00 999 MLS/HR Pantoprazole Sodium 40 mg/ Syringe 10 ml @ 5 mls/min NOW ONCE IV 01/29/18 18:30 01/29/18 18:31 DC 01/29/18 19:02 5 MLS/MIN Sodium Chloride 1,000 ml @ 100 mls/hr Q10H STAT IV 01/29/18 19:30 01/29/18 22:07 DC 01/29/18 20:25 100 MLS/HR Pantoprazole Sodium 40 mg/ Dextrose 110 ml @ 440 mls/hr TODAY@1945 ONCE IV 01/29/18 19:45 01/29/18 19:59 DC 01/29/18 20:24 440 MLS/HR Pantoprazole Sodium 40 mg/ Dextrose 100 ml @ 20 mls/hr Q5H IV 01/29/18 19:45 01/30/18 00:44 DC 01/29/18 20:24 20 MLS/HR Sodium Chloride 1,000 ml @ 80 mls/hr [id number] IV 01/29/18 22:00 01/30/18 22:59 01/30/18 09:02 80 MLS/HR Pantoprazole Sodium 40 mg/ Dextrose 110 ml @ 20 mls/hr Q5H IV 01/30/18 00:45 01/30/18 13:38 DC 01/30/18 11:20 20 MLS/HR Atorvastatin Calcium (Lipitor Tab) 20 mg QPM PO 01/29/18 21:00 02/28/18 20:59 01/29/18 22:57 20 MG Budesonide/ Formoterol Fumarate (Symbicort 80/ 4.5 Inh) 2 puffs BID INH 01/29/18 21:00 02/28/18 20:59 01/29/18 22:57 2 PUFFS Prednisolone Acetate (Pred Forte 1% Oph Susp) 1 drops BID OPL 01/29/18 21:00 02/28/18 20:59 01/30/18 08:36 1 DROPS Sertraline HCl (Zoloft Tab) 50 mg QPM PO 01/29/18 21:00 02/28/18 20:59 01/29/18 22:57 50 MG Polyethylene Glycol/ Electrolytes (Golytely Soln) 16 dose TODAY@1400 PO 01/30/18 14:00 01/30/18 22:00 01/30/18 14:11 16 DOSE Objective Vital Signs Date Time Temp Pulse Resp B/P (MAP) Pulse Ox O2 Delivery O2 Flow Rate FiO2 01/30/18 14:03 36.7 66 16 143/76 (98) 94 Room Air 01/30/18 13:45 37.1 66 20 141/80 93 Room Air 01/30/18 13:35 67 20 131/72 94 Room Air 01/30/18 13:25 36.6 70 20 127/72 93 Room Air 01/30/18 11:31 36.9 64 16 125/67 (86) 94 Room Air 01/30/18 11:30 94 Room Air 01/30/18 07:30 95 Room Air 01/30/18 07:05 36.7 64 16 120/69 (86) 95 Room Air 01/30/18 04:00 36.6 64 20 116/68 (84) 93 Room Air 01/30/18 04:00 Room Air 01/30/18 00:00 36.6 66 20 134/74 (94) 93 Room Air 69 109/62 (78) 75 107/69 (82) 01/30/18 00:00 Room Air 01/29/18 22:00 36.4 71 18 144/79 93 Room Air 01/29/18 21:13 67 18 137/85 94 Room Air 01/29/18 20:27 65 20 124/84 93 Room Air 01/29/18 20:26 66 01/29/18 18:59 69 20 133/74 95 Room Air 67 136/84 92 92/68 01/29/18 18:04 36.6 86 18 126/81 94 Room Air Physical Exam General Appearance: no apparent distress Eyes: EOMI Neck: supple Respiratory/Chest: lungs clear, normal breath sounds Cardiovascular: regular rate, rhythm, no edema, no gallop, no murmur Abdomen: normal bowel sounds, non tender, soft Extremities: normal range of motion, non-tender, normal inspection, no pedal edema Neurologic/Psychiatric: 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, no motor/sensory deficits, alert, normal mood/affect, oriented x 3 Skin: warm/dry, no rash Lymphatic: no adenopathy Laboratory Results Last 24 Hours Test 01/29/18 18:45 01/29/18 20:20 01/30/18 02:06 01/30/18 08:14 White Blood Count 9.15 K/uL 7.63 K/uL Red Blood Count 4.81 M/uL 4.04 M/uL Hemoglobin 15.2 g/dL 13.4 g/dL 12.7 g/dL 12.0 g/dL Hematocrit 43.1 % 38.1 % 36.0 % 34.4 % Mean Corpuscular Volume 89.6 fL 89.1 fL Mean Corpuscular Hemoglobin 31.6 pg 31.4 pg Mean Corpuscular Hemoglobin Concent 35.3 g/dl 35.3 g/dl Platelet Count 291 K/uL 230 K/uL Mean Platelet Volume 8.7 fL 8.3 fL Neutrophils (%) (Auto) 63.7 % 66.3 % Lymphocytes (%) (Auto) 23.0 % 21.0 % Monocytes (%) (Auto) 9.1 % 8.1 % Eosinophils (%) (Auto) 3.0 % 3.4 % Basophils (%) (Auto) 0.9 % 0.7 % Neutrophils # (Auto) 5.84 K/uL 5.06 K/uL Lymphocytes # (Auto) 2.10 K/uL 1.60 K/uL Monocytes # (Auto) 0.83 K/uL 0.62 K/uL Eosinophils # (Auto) 0.27 K/uL 0.26 K/uL Basophils # (Auto) 0.08 K/uL 0.05 K/uL RDW Standard Deviation 43.0 fL 43.5 fL RDW Coefficient of Variation 13.1 % 13.3 % Immature Granulocyte % (Auto) 0.3 % 0.5 % Immature Granulocyte # (Auto) 0.03 K/uL 0.04 K/uL Prothrombin Time 10.1 SECONDS Prothromb Time International Ratio 1.0 Activated Partial Thromboplast Time 26.8 SECONDS Partial Thromboplastin Ratio 1.0 Sodium Level 137 mmol/L 138 mmol/L Potassium Level 3.9 mmol/L 3.6 mmol/L Chloride Level 104 mmol/L 106 mmol/L Carbon Dioxide Level 26 mmol/L 25 mmol/L Anion Gap 7.0 mmol/L 7.0 mmol/L Blood Urea Nitrogen 20 mg/dl 20 mg/dl Creatinine 1.04 mg/dl 0.94 mg/dl Est Creatinine Clear Calc Drug Dose 59.5 ml/min 65.8 ml/min Estimated GFR () 79.9 90.3 Estimated GFR (Non- 68.9 77.9 BUN/Creatinine Ratio 19.2 20.8 Random Glucose 110 mg/dl 118 mg/dl Calcium Level 8.9 mg/dl 7.9 mg/dl Total Bilirubin 0.4 mg/dl 0.5 mg/dl Direct Bilirubin < 0.1 mg/dl Aspartate Amino Transf (AST/SGOT) 19 U/L 16 U/L Alanine Aminotransferase (ALT/SGPT) 27 U/L 21 U/L Alkaline Phosphatase 110 U/L 80 U/L Total Protein 7.7 gm/dl 6.4 gm/dl Albumin 4.0 gm/dl 3.0 gm/dl Globulin 3.4 gm/dl Albumin/Globulin Ratio 0.9 Test 01/30/18 14:09 Hemoglobin 11.9 g/dL Hematocrit 34.2 % Assessment and Plan Patient is a 77 year old male with Hx of GERD on PPI, recently started NSAIDs for arthritis, Hx of Diverticulosis on last colonoscopy, presented with rectal bleeding, maroon colored stool without abdominal pain. Hct dropped and BUN is elevated. DDx: UGIB due to PUD and Diverticular bleed. Plan Status post EGD, unremarkable. Hemoglobin/hematocrit 12/34 Continue IV PPI drip. Avoid NSAIDs. Monitor H/H. Will give bowel prep today with Golytely and do colonoscopy tomorrow at 7:30AM GI recommendation appreciated. DVT prophylaxis SCDs Discharge most likely home Continued [facility] stay due to: other Discharge planning: home
--- NOTE | 2018-01-30 15:48 | Family Medicine Progress Note ---
Progress Note Date of Service Jan 30, 2018. Subjective Pt evaluation today including: conversation w/ patient, physical exam, chart review, lab review Pain: mild upper abdominal pain this AM PO Intake: NPO this AM Voiding: no voiding problems This AM reports mild upper abdominal pain band like pain attributes to indigestion vs. taking repetitive deep breaths as instructed by providers since ED arrival. Reports BM early this AM with BRBPR and melanotic. Associated with chronic sob and dizziness when gets up. Telemetry: sinus rhythm Constitutional: No fever Respiratory: + shortness of breath (chronic) Cardiovascular: No chest pain Abdomen: + pain, + GI bleeding, No nausea, No vomiting Male : No dysuria Medications Current Inpatient Medications Medications (Trade) Dose Ordered Sig/Angy Route Start Time Stop Time Status Last Admin Dose Admin Sodium Chloride 1,000 ml @ 80 mls/hr [id number] IV 01/29/18 22:00 01/30/18 22:59 01/30/18 09:02 80 MLS/HR Acetaminophen (Tylenol Tab) 650 mg Q4H PRN PO 01/29/18 20:15 02/28/18 20:14 Al Hydrox/Mg Hydrox/Simethicone (Maalox Max Susp) 15 ml Q4H PRN PO 01/29/18 20:15 02/28/18 20:14 Magnesium Hydroxide (Milk Of Magnesia Susp) 30 ml Q12H PRN PO 01/29/18 20:15 02/28/18 20:14 Ondansetron HCl (Zofran Inj) 4 mg Q6H PRN IV 01/29/18 20:15 02/28/18 20:14 Atorvastatin Calcium (Lipitor Tab) 20 mg QPM PO 01/29/18 21:00 02/28/18 20:59 01/29/18 22:57 20 MG Budesonide/ Formoterol Fumarate (Symbicort 80/ 4.5 Inh) 2 puffs BID INH 01/29/18 21:00 02/28/18 20:59 01/29/18 22:57 2 PUFFS Levothyroxine Sodium (Synthroid Tab) 100 mcg DAILYBB PO 01/30/18 06:30 03/01/18 06:59 Prednisolone Acetate (Pred Forte 1% Oph Susp) 1 drops BID OPL 01/29/18 21:00 02/28/18 20:59 01/30/18 08:36 1 DROPS Sertraline HCl (Zoloft Tab) 50 mg QPM PO 01/29/18 21:00 02/28/18 20:59 01/29/18 22:57 50 MG Polyethylene Glycol/ Electrolytes (Golytely Soln) 16 dose TODAY@1400 PO 01/30/18 14:00 01/30/18 22:00 01/30/18 14:11 16 DOSE Objective Vital Signs Date Time Temp Pulse Resp B/P (MAP) Pulse Ox O2 Delivery O2 Flow Rate FiO2 01/30/18 15:32 36.3 70 16 128/75 (92) 94 Room Air 01/30/18 14:03 36.7 66 16 143/76 (98) 94 Room Air 01/30/18 13:45 37.1 66 20 141/80 93 Room Air 01/30/18 13:35 67 20 131/72 94 Room Air 01/30/18 13:25 36.6 70 20 127/72 93 Room Air 01/30/18 11:31 36.9 64 16 125/67 (86) 94 Room Air 01/30/18 11:30 94 Room Air 01/30/18 07:30 95 Room Air 01/30/18 07:05 36.7 64 16 120/69 (86) 95 Room Air 01/30/18 04:00 36.6 64 20 116/68 (84) 93 Room Air 01/30/18 04:00 Room Air 01/30/18 00:00 36.6 66 20 134/74 (94) 93 Room Air 69 109/62 (78) 75 107/69 (82) 01/30/18 00:00 Room Air 01/29/18 22:00 36.4 71 18 144/79 93 Room Air 01/29/18 21:13 67 18 137/85 94 Room Air 01/29/18 20:27 65 20 124/84 93 Room Air 01/29/18 20:26 66 01/29/18 18:59 69 20 133/74 95 Room Air 67 136/84 92 92/68 01/29/18 18:04 36.6 86 18 126/81 94 Room Air Physical Exam General Appearance: no apparent distress Eyes: normal inspection Respiratory/Chest: lungs clear, normal breath sounds Cardiovascular: regular rate, rhythm Abdomen: normal bowel sounds, non tender, soft Extremities: non-tender, no pedal edema Neurologic/Psychiatric: alert, oriented x 3 Skin: warm/dry Laboratory Results Last Resulted 01/30/18 02:06 Red Blood Count 4.04, Mean Corpuscular Volume 89.1, Mean Corpuscular Hemoglobin 31.4, Mean Corpuscular Hemoglobin Concent 35.3, Mean Platelet Volume 8.3, Neutrophils (%) (Auto) 66.3, Lymphocytes (%) (Auto) 21.0, Monocytes (%) (Auto) 8.1, Eosinophils (%) (Auto) 3.4, Basophils (%) (Auto) 0.7, Neutrophils # (Auto) 5.06, Lymphocytes # (Auto) 1.60, Monocytes # (Auto) 0.62, Eosinophils # (Auto) 0.26, Basophils # (Auto) 0.05 01/30/18 14:09 Last Resulted 01/30/18 02:06 Past 24 Hours Test 01/29/18 18:45 Range/Units Prothromb Time International Ratio 1.0 0.9-1.1 Prothrombin Time 10.1 9.0-12.0 SECONDS Assessment and Plan 77 yoM with h/o GERD presents for concern of acute GI bleed s/p 2 days of BRBPR and melanotic stools likely in the setting of NSAIDS (recently started Meloxicam for arthritis). PMHx: GERD (on omeprazole), HTN (on amlodipine), and arthritis GI Bleed: concern for rectal bleeding - On protonix drip - GI following - EGD: normal esophagus, stomach and duodenum - started on clear liquid diet - Ordered 4L golytely for bowel prep - Colonoscopy planned for tomorrow - H/H Q6H - 3 units of blood on hold, typed and crossed - Consider transfusing if Hgb < 7 HTN but currently with orthostasis: likely secondary acute blood loss - Hold amlodipine - IVF 80mls/hr NS Hypothyroidism - Continue Synthroid Arthritis: - Hold meloxicam Depression: - Continue Sertraline Asthma: - Continue Ventolin, montelukast Code status: Full Diet: Clear liquid diet DVT Prophylaxis: SCDS Disposition: Admitted to Telemetry -> Home Resident Physician Supervision Note: I was present with Dr. Carmen during the history and exam. I discussed the case with the resident and agree with the findings and plan as documented in the note. The patient denies pain, at present or prior to arrival. Scheduled for EGD this morning; consideration for colonoscopy thereafter should EGD prove non- diagnostic. Documented By: Tyree Rea Resident Involvement: Resident Care Provided Care Provided: Adult [facility] Medicine
[2018-01-30 20:32] LABS: HEMATOCRIT 35.6 % (42-52); HEMOGLOBIN 12.2 g/dL (14.0-18.0)
[2018-01-30] MEDS: SERTRALINE HCL 50 MG TAB PO SCH (21:34)
[2018-01-30] MEDS: ATORVASTATIN 20 MG TAB PO SCH (21:34)
[2018-01-31 02:38] VITALS: BP 112/50; PULSE 89; TEMP 36.7; O2SAT 91
[2018-01-31] MEDS: LEVOTHYROXINE 100 MCG TAB PO SCH (05:43)
[2018-01-31 06:31] LABS: BASO % 0.2 %; BASO ABS # 0.03 K/uL (0-0.2); EOS % 0.6 %; EOS ABS # 0.08 K/uL (0-0.5); HEMATOCRIT 33.3 % (42-52); HEMOGLOBIN 11.3 g/dL (14.0-18.0); IG# 0.05 K/uL (0.00-0.02); LYMPH % 9.5 %; LYMPH ABS # 1.38 K/uL (1.2-3.4); MEAN CELL VOLUME 89.8 fL (80-100); MEAN CORPUSCULAR HEMOGLOBIN 30.5 pg (25-34); MEAN CORPUSCULAR HGB CONC 33.9 g/dl (32-36); MEAN PLATELET VOLUME 8.4 fL (7.4-10.4); MONO % 5.4 %; MONO ABS # 0.78 K/uL (0.11-0.59); NEUT ABS # 12.17 K/uL (1.4-6.5); PLATELET COUNT 233 K/uL (130-400); RED CELL DISTRIBUTION WIDTH CV 13.5 % (11.5-14.5); RED CELL DISTRIBUTION WIDTH SD 44.5 fL (36.4-46.3); WHITE BLOOD COUNT 14.49 K/uL (4.8-10.8)
[2018-01-31 06:32] VITALS: BP 118/69; PULSE 76; TEMP 36.9; O2SAT 94
[2018-01-31] MEDS ORDERED: PROPOFOL IV EMULSION 10 MG/ML 20 ML VIAL IV ONE (07:10)
[2018-01-31] MEDS ORDERED: LIDOCAINE HCL 2% 2 ML VIAL (20MG/ML) ONE (07:10)
[2018-01-31 07:12] VITALS: O2SAT 94
[2018-01-31 07:13] LABS: CALCIUM 8.3 mg/dl (8.5-10.1); CREATININE 0.88 mg/dl (0.60-1.40); POTASSIUM 3.5 mmol/L (3.5-5.1)
--- NOTE | 2018-01-31 07:27 | History & Physical Bridge Note ---
H&P Re-Evaluation Bridge Note: I have examined the patient, reviewed the History & Physical and in the interval since the performance of the History & Physical I have noted the following changes of clinical significance: No changes noted
--- NOTE | 2018-01-31 08:02 | [facility] Post Operative Brief Note ---
Immediate Operative Summary Operative Date Jan 31, 2018. Pre-Operative Diagnosis Gastrointestinal Bleed Post-Operative Diagnosis Diverticulosis Procedure(s) Performed Colonoscopy in Operating Room Surgeon Dr. Doreen Edmond Privacy Compliance Manager Surgeon(s) none Estimated Blood Loss 0mL Findings See Below Diverticulosis and Hemorrhoids Specimens Specimens collected and recorded per endoscopy staff Anesthesia Type MAC
--- NOTE | 2018-01-31 08:20 | Anesthesiology Progress Note ---
Anesthesia Post Op Note Date & Time Jan 31, 2018 at 08:19 Vital Signs Pain Intensity: 0.0 Vital Signs Past 12 Hours Date Time Temp Pulse Resp B/P (MAP) Pulse Ox O2 Delivery O2 Flow Rate FiO2 01/31/18 07:12 94 Room Air 01/31/18 06:32 36.9 76 16 118/69 (85) 94 Room Air 01/31/18 04:00 Room Air 01/31/18 02:38 36.7 89 18 112/50 (70) 91 Room Air 01/31/18 00:00 Room Air 01/30/18 23:11 36.7 84 18 136/64 (88) 94 Room Air Notes Mental Status: alert / awake / arousable, participated in evaluation Pt Amnestic to Procedure: Yes Nausea / Vomiting: adequately controlled Pain: adequately controlled Airway Patency, RR, SpO2: stable & adequate BP & HR: stable & adequate Hydration State: stable & adequate Anesthetic Complications: no major complications apparent The patient is awake and his vitals are stable in recovery.
--- NOTE | 2018-01-31 08:22 | GI REPORT ---
Procedure Date: 01/31/2018 7:25 AM Procedure: Colonoscopy Indications: Rectal bleeding Medicines: Monitored Anesthesia Care Complications: No immediate complications. Estimated Blood Loss: Estimated blood loss: none. Procedure: Pre-Anesthesia Assessment: - Prior to the procedure, a History and Physical was performed, and patient medications and allergies were reviewed. The patient is competent. The risks and benefits of the procedure and the sedation options and risks were discussed with the patient. All questions were answered and informed consent was obtained. Patient identification and proposed procedure were verified by the physician and the nurse in the procedure room. Mental Status Examination: alert and oriented. Airway Examination: normal oropharyngeal airway and neck mobility. Respiratory Examination: clear to auscultation. CV Examination: normal. ASA Grade Assessment: III - A patient with severe systemic disease. After reviewing the risks and benefits, the patient was deemed in satisfactory condition to undergo the procedure. The anesthesia plan was to use monitored anesthesia care (MAC). Immediately prior to administration of medications, the patient was re-assessed for adequacy to receive sedatives. The heart rate, respiratory rate, oxygen saturations, blood pressure, adequacy of pulmonary ventilation, and response to care were monitored throughout the procedure. The physical status of the patient was re-assessed after the procedure. After I obtained informed consent, the scope was passed under direct vision. Throughout the procedure, the patient's blood pressure, pulse, and oxygen saturations were monitored continuously. The scope was introduced through the anus and advanced to the terminal ileum. The colonoscopy was performed without difficulty. The patient tolerated the procedure well. The quality of the bowel preparation was fair. The terminal ileum, ileocecal valve, appendiceal orifice, and rectum were photographed. Findings: The perianal and digital rectal examinations were normal. The terminal ileum appeared normal. Scattered small and large-mouthed diverticula were found in the sigmoid colon. A 3 mm polyp was found in the rectum. The polyp was sessile. The polyp was removed with a cold biopsy forceps. Resection and retrieval were complete. Verification of patient identification for the specimen was done by the physician and nurse using the patient's name and date. Non-bleeding internal hemorrhoids were found during retroflexion. The hemorrhoids were medium-sized. Impression: - Preparation of the colon was fair. - The examined portion of the ileum was normal. - Diverticulosis in the sigmoid colon. - One 3 mm polyp in the rectum, removed with a cold biopsy forceps. Resected and retrieved. - Non-bleeding internal hemorrhoids. Recommendation: - Return patient to [facility] for [facility] care. - Advance diet as tolerated. - If bleeding recurs will need bleeding scan/ IR evaluation. - Repeat colonoscopy in 3 years for surveillance. Kenny Edmond MD 01/31/2018 8:21:24 AM This report has been signed electronically. Note Initiated On: 01/31/2018 7:25 AM I attest to the content of the Intraoperative Record and orders documented therein, exceptions below
[2018-01-31 08:50] VITALS: BP 152/70; PULSE 82; TEMP 37.1; O2SAT 95
[2018-01-31] MEDS: BUDESONIDE/FORMOTEROL FUMARATE 80/4.5 60 PUFFS/INHALER INH SCH (08:55)
[2018-01-31] MEDS: PrednisoLONE ACET 1% OP SUSP 5 ML BTL OPL SCH (08:56)
--- NOTE | 2018-01-31 09:34 | Discharge Instructions ---
Discharge Instructions Date of Service Jan 31, 2018. Admission Reason for Admission: Gi Bleed Discharge Discharge Diagnosis / Problem: Diverticular bleed Discharge Goals Goal(s): Diagnostic testing, Therapeutic intervention Activity Recommendations Activity Limitations: resume your previous activity . Instructions / Follow-Up Instructions / Follow-Up Mr. Marie, you were admitted because you were having multiple dark bowel movements with bright red blood concerning for gastrointestinal bleeding. You were taking Meloxicam which can increase your risk for bleeding as it can irritate your stomach. We performed an EGD (upper endoscopy) and your esophagus , stomach and duodenum (first portion of small intestine) looked good. We also performed a colonoscopy to look at your lower GI tract. You were found to have diverticulosis (which are out-pouchings of your large intestine) which can bleed at times and can explain the bleeding you had. You also have hemorrhoids which can also cause bright red bleeding. You were not found to be actively bleeding at the time of the procedure. Please follow the following recommendations below: -Stop taking Meloxicam -Continue other home medications as prescribed -Increase dietary fiber (eat more fruits and vegetables) and take a daily over the counter fiber such as Metamucil (which you already have) -Follow up with your primary care doctor within a week - Lab ordered to repeat blood count (please get it done before you see your doctor) at [facility] Diet Patient's current hospital diet: Regular Diet Discharge Diet Recommended Diet: AHA Diet (Heart Healthy) Procedures Procedures Performed: Colonoscopy and EGD in Operating Room Pending Studies Studies pending at discharge: no Laboratory Results Lipid Panel Test 12/23/17 09:05 Range/Units Triglycerides Level 146 0-150 mg/dl Cholesterol Level 162 0-200 mg/dl HDL Cholesterol 45 mg/dl Cholesterol/HDL Ratio 3.6 LDL Cholesterol, Calculated 88 mg/dl Medical Emergencies . Who to Call and When: Medical Emergencies: If at any time you feel your situation is an emergency, please call 911 immediately. . Non-Emergent Contact Non-Emergency issues call your: Primary Care Provider . . "Provider Documentation" section prepared by Evgeny Carmen. .
--- NOTE | 2018-01-31 09:56 | Gastroenterology Progress Note ---
Gastroenterology Progress Note s/p Colonoscopy, no bleeding seen in the entire colon and TI, likely diverticular bleeding that spontaneously resolved. Can advance to regular diet. H/H stable. No further GI intervention and patient seems stable for discharge. If bleeding recurs will need bleeding scan. Recall if needed.
[2018-01-31 10:24] VITALS: BP_SYST 116; BP_SYST 152; BP_DIAS 67; BP_DIAS 70; PULSE 78; PULSE 82; TEMP 36.7; TEMP 37.1; O2SAT 94; O2SAT 95
[2018-01-31 10:40] VITALS: BP 116/67; PULSE 78; TEMP 36.7; O2SAT 94
--- NOTE | 2018-01-31 12:50 | Discharge Summary ---
Discharge Summary Date of Service Jan 31, 2018. Discharge Summary Admission Date: Jan 29, 2018 at 20:27 Discharge Date: Jan 31, 2018 Discharge Disposition: Home Principal Diagnosis: Diverticular bleed Problems/Secondary Diagnoses: HTN GERD Arthritis Procedures: Colonoscopy 01/31/18: diverticulosis: sigmoid colon; non-bleeding internal hemorrhoids; one 3mm polyp removed from rectum and sent for biopsy; recommendation to repeat in 3 years EGD 01/30/18: normal esophagus, stomach and duodenum Consultations: Gastroenterology: Dr. Edmond Medication Reconciliation Continued Medications: Acetaminophen (Tylenol) 500 Mg Tab 1000 MG PO AMPM, TAB Amlodipine (Norvasc) 5 Mg Tab 5 MG PO DAILY, TAB Ascorbic Acid (Vitamin C) 500 Mg Cap 500 MG PO QPM Aspirin (Aspirin Ec) 81 Mg Tab 81 MG PO QPM Atorvastatin (Lipitor) 20 Mg Tab 20 MG PO QPM, TAB Azelastine Hcl (Astepro) 0.15 % Spr 2 SPRY LILA DAILY for 30 Days, #30 ML 5 Refills Budesonide/Formoterol Fumarate (Symbicort 80/4.5 Inhaler) Aero 2 PUFFS INH BID, INHALER Levothyroxine Sodium (Synthroid) 100 Mcg Tab 100 MCG PO DAILY, TAB Omeprazole (Prilosec) 40 Mg Cap 40 MG PO DAILY, CAP Prednisolone Acetate (Ophth) (Pred Forte 1% Oph) 1 % Brianda 1 DROPS OPL BID, #10 ML Sertraline (Zoloft) 50 Mg Tab 50 MG PO QPM, TAB Vitamin E (E-400) 400 Unit Cap 400 UNITS PO DAILY Discontinued Medications: Meloxicam (Mobic) Unknown Strength Tab 1 TAB PO DAILY, TAB Discharge Exam Review of Systems: Constitutional: No fever, No chills Respiratory: No shortness of breath Cardiovascular: No chest pain Abdomen: No pain, No nausea, No vomiting Genitourinary - Male: No dysuria Physical Exam: General Appearance: no apparent distress Eyes: normal inspection Respiratory/Chest: lungs clear, normal breath sounds Cardiovascular: regular rate, rhythm, no edema Abdomen / GI: normal bowel sounds, non tender, soft Extremities: no calf tenderness, no pedal edema Neurologic/Psychiatric: alert, oriented x 3 Skin: warm/dry Hospital Course 77 yoM with h/o GERD (on omeprazole), HTN (on amlodipine) and arthritis presented for concern of acute GI bleed after 2 days of BRBPR and melanotic stools likely in the setting of NSAIDS (recently started Meloxicam for arthritis ). GI Bleed: likely from diverticular bleed vs. internal hemorrhoids -Protonix drip -GI consulted - EGD: normal esophagus, stomach and duodenum - Colonoscopy: diverticulosis of sigmoid colon; non-bleeding internal hemorrhoids; one 3mm polyp removed from rectum and sent for biopsy -H/H checked Q6H - stable and downtrended from 15 to 11.3 during admission -Discharged with recommendation of increasing fiber in diet, taking supplemental fiber and follow up with PCP with repeat CBC in 3 days HTN with orthostasis: likely secondary acute blood loss - Held amlodipine: resumed on discharge - Received IV fluids Hypothyroidism - Continued home Synthroid Arthritis: - Held meloxicam Depression: - Continued home Sertraline Asthma: - Continue home Ventolin, montelukast No DVT prophylaxis due to concern of bleeding Resident Physician Supervision Note: I was present with Dr. Carmen during the history and exam. I discussed the case with the resident and agree with the findings and plan as documented in the note. Any exceptions or clarifications are listed here: Upon my exam, the patient is lying semi-reclined in bed without complaint. Son and are bedside. Results of EGD and colonoscopy are reviewed and all questions addressed. PLAN 1) Safe for discharge today. 2) No NSAIDs/He will use Tylenol for pain. 3) CBC middle of this coming week. 4) Follow up with PCP in 7-10 days. Documented By: Tyree Rea Total Time Spent: Less than 30 minutes This includes examination of the patient, discharge planning, medication reconciliation, and communication with other providers. Discharge Instructions Please refer to the electronic Patient Visit Report (Discharge Instructions) for additional information. Additional Copies To Estevan Trejo M.D.
== END 2018-01-31 10:56 | disposition home or self-care (01) | DRG 393 ==
LOC: C.EDB 18:02 → C.MED 20:27 → ENRESERV 20:52
PROVIDERS: ADMIT Internal Medicine; ATTEND Family Medicine
PROC: 0DJ08ZZ Inspection of Upper Intestinal Tract, Via Natural or Artificial Opening Endoscopic (ICD-10-PCS; 2018-01-30)
PROC: 0DBP8ZX Excision of Rectum, Via Natural or Artificial Opening Endoscopic, Diagnostic (ICD-10-PCS; principal; 2018-01-31 07:30)
DX: K64.8 Other hemorrhoids (principal); K57.31 Diverticulosis of large intestine without perforation or abscess with bleeding; K62.1 Rectal polyp; I95.89 Other hypotension; M19.90 Unspecified osteoarthritis, unspecified site; I10 Essential (primary) hypertension; K21.9 Gastro-esophageal reflux disease without esophagitis; J45.909 Unspecified asthma, uncomplicated; E03.9 Hypothyroidism, unspecified; F32.9 Major depressive disorder, single episode, unspecified; Z79.899 Other long term (current) drug therapy; Z79.82 Long term (current) use of aspirin; Z79.1 Long term (current) use of non-steroidal anti-inflammatories (NSAID); Z87.19 Personal history of other diseases of the digestive system; Z87.891 Personal history of nicotine dependence

== ENCOUNTER → 2018-02-02 | Outpatient (CLI) | payer OTHER ==
[~2018-02-02] MED LIST: ACET-1256 PO; AMLO-110 PO; ASCO1CAP3 PO; ASPI81TA28 PO; ATOR-22 PO; AZEL0.15 NAE; LEVO100T PO; OMEP40CA41 PO; PRED1SUS3 OPL; SERT-234 PO; SERT50TA PO; SNG10 PO; SYMIN/8045 INH; VITACAP37 PO
[2018-02-02 13:19] LABS: BASO % 0.6 %; BASO ABS # 0.06 K/uL (0-0.2); EOS % 3.7 %; EOS ABS # 0.35 K/uL (0-0.5); HEMATOCRIT 36.8 % (42-52); HEMOGLOBIN 12.3 g/dL (14.0-18.0); IG# 0.03 K/uL (0.00-0.02); LYMPH ABS # 2.45 K/uL (1.2-3.4); MEAN CELL VOLUME 92.5 fL (80-100); MEAN CORPUSCULAR HEMOGLOBIN 30.9 pg (25-34); MEAN CORPUSCULAR HGB CONC 33.4 g/dl (32-36); MONO % 9.1 %; MONO ABS # 0.86 K/uL (0.11-0.59); NEUT % 60.3 %; NEUT ABS # 5.66 K/uL (1.4-6.5); PLATELET COUNT 297 K/uL (130-400); RED CELL DISTRIBUTION WIDTH CV 13.4 % (11.5-14.5); RED CELL DISTRIBUTION WIDTH SD 45.2 fL (36.4-46.3); WHITE BLOOD COUNT 9.41 K/uL (4.8-10.8)
== END | disposition home or self-care (01) ==
LOC: C.LABMFLN 07:39
PROVIDERS: ATTEND Family Medicine
DX: K92.2 Gastrointestinal hemorrhage, unspecified (principal)

== ENCOUNTER 2018-02-03 11:27 | Observation (INO) | payer OTHER ==
[~2018-02-03] VITALS: Ht 175.3 cm; Wt 79.7 kg
[~2018-02-03 11:27] MED LIST changes: -SERT-234 PO; -SNG10 PO
[2018-02-03 12:19] LABS: BASO % 0.7 %; BASO ABS # 0.06 K/uL (0-0.2); EOS % 1.9 %; EOS ABS # 0.17 K/uL (0-0.5); HEMATOCRIT 34.8 % (42-52); HEMOGLOBIN 12.4 g/dL (14.0-18.0); IG# 0.06 K/uL (0.00-0.02); LYMPH % 23.1 %; LYMPH ABS # 2.06 K/uL (1.2-3.4); MEAN CELL VOLUME 89.2 fL (80-100); MEAN CORPUSCULAR HEMOGLOBIN 31.8 pg (25-34); MEAN CORPUSCULAR HGB CONC 35.6 g/dl (32-36); MEAN PLATELET VOLUME 8.5 fL (7.4-10.4); MONO % 7.7 %; MONO ABS # 0.69 K/uL (0.11-0.59); NEUT % 65.9 %; NEUT ABS # 5.89 K/uL (1.4-6.5); PLATELET COUNT 314 K/uL (130-400); RED CELL DISTRIBUTION WIDTH SD 42.2 fL (36.4-46.3); WHITE BLOOD COUNT 8.93 K/uL (4.8-10.8)
[2018-02-03 12:27] LABS: PTT PATIENT 25.7 SECONDS (21.0-31.0)
[2018-02-03 12:35] LABS: ALBUMIN 3.7 gm/dl (3.4-5.0); ALT/SGPT 23 U/L (12-78); AST/SGOT 20 U/L (15-37); BLOOD UREA NITROGEN 14 mg/dl (7-18); CALCIUM 9.2 mg/dl (8.5-10.1); CARBON DIOXIDE 26 mmol/L (21-32); CREATININE 0.93 mg/dl (0.60-1.40); GLUCOSE 94 mg/dl (70-99); POTASSIUM 3.6 mmol/L (3.5-5.1); SODIUM 133 mmol/L (136-145)
[2018-02-03 12:40] LABS: ALKALINE PHOSPHATASE 84 U/L (45-117); TOTAL PROTEIN 7.9 gm/dl (6.4-8.2)
--- NOTE | 2018-02-03 12:46 | EMERGENCY ROOM VISIT NOTE ---
History Report prepared by [place]: Andra Ashford Under the Supervision of: Dr. Adeel Miller D.O. First contact with patient: 11:53 Chief Complaint: RECTAL BLEEDING Stated Complaint: BLEEDING FROM RECTUM History of Present Illness The patient is a 77 year old male who presents to the Emergency Room with complaints of intermittent rectal bleeding beginning this morning. The patient reports that he was in the hospital last week for a GI bleed. He had an endoscopy and colonoscopy at this time. GI could not find an area of active bleeding and they thought it might be related to his diverticulosis. He was discharged home 3 days ago. The patient has been feeling well. He woke up today and had 3 episodes of rectal bleeding with defecation. He reports that it was both bright red blood and dark blood. He is feeling slightly lightheaded. The patient denies dizziness, nausea, vomiting, and abdominal pain. called the patient's PCP this morning and was advised to bring him to the ED for further evaluation. The patient takes a daily baby aspirin and denies other blood thinners. Source of History: patient, spouse/significant other Onset: this morning Position: abdomen (rectum) Quality: other (bleeding) Timing: intermittent Modifying Factors (Worsening): defecation Associated Symptoms: + melena, + hematochezia, No nausea, No vomiting, No abdominal pain Note: Pt reports lightheadedness. Pt denies dizziness. Review of Systems See HPI for pertinent positives & negatives. A total of 10 systems reviewed and were otherwise negative. Past Medical & Surgical Medical Problems: (1) Diverticulitis (2) Hemorrhoid (3) Lower GI bleed Surgical Problems: (1) Hx of hernia repair Family History Patient reports no known family medical history. Social History Smoking Status: Never Smoker Alcohol Use: none Drug Use: none Marital Status: Housing Status: lives with significant other Occupation Status: retired Current/Historical Medications Scheduled Acetaminophen (Tylenol), 1,000 MG PO AMPM Amlodipine (Norvasc), 5 MG PO DAILY Ascorbic Acid (Vitamin C), 500 MG PO QPM Aspirin (Aspirin Ec), 81 MG PO QPM Atorvastatin (Lipitor), 20 MG PO QPM Azelastine Hcl (Astepro), 2 SPRY LILA DAILY Budesonide/Formoterol Fumarate (Symbicort 80/4.5 Inhaler), 2 PUFFS INH BID Levothyroxine Sodium (Synthroid), 100 MCG PO DAILY Montelukast Sod (Montelukast Sodium), 10 MG PO DAILY Omeprazole (Prilosec), 40 MG PO DAILY Prednisolone Acetate (Ophth) (Pred Forte 1% Oph), 1 DROPS OPL BID Sertraline (Zoloft), 1 TAB PO DAILY Vitamin E (E-400), 400 UNITS PO DAILY Allergies Coded Allergies: No Known Allergies (Unverified , 02/03/18) Physical Exam Vital Signs Date Time Temp Pulse Resp B/P (MAP) Pulse Ox O2 Delivery O2 Flow Rate FiO2 02/03/18 13:17 95 Room Air 02/03/18 12:25 70 02/03/18 11:59 95 Room Air 02/03/18 11:36 36.6 79 20 145/80 95 Room Air Physical Exam GENERAL: Patient is awake, alert, and in no acute distress. Patient is resting comfortably and showing no signs of anxiety EYES: The conjunctivae are clear. The pupils are round and reactive. EARS, NOSE, MOUTH AND THROAT: The nose is without any evidence of any deformity. Mucous membranes are moist tongue is midline NECK: The neck is nontender and supple. RESPIRATORY: Normal respiratory effort is noted there is no evidence of wheezing rhonchi or rales CARDIOVASCULAR: Regular rate and rhythm noted there no murmurs rubs or gallops normal S1 normal S2 GASTROINTESTINAL: The abdomen is soft. Bowel sounds are present in all quadrants. Abdomen is nontender RECTAL: Gross blood per rectum. MUSCULOSKELETAL/EXTREMITIES: There is no evidence of gross deformity full range of motion is noted in the hips and shoulders SKIN: There is no obvious evidence of any rash. There are no petechiae, pallor or cyanosis noted. NEUROLOGIC: Patient is awake alert and oriented x3 strength is symmetric patellar reflexes are 2+ bilaterally Medical Decision & Procedures ER Provider Diagnostic Interpretation: Radiology results as stated below per my review and radiologist interpretation: CHEST ONE VIEW PORTABLE CLINICAL HISTORY: Respiratory distress COMPARISON STUDY: No previous studies for comparison. FINDINGS: The heart is borderline enlarged. There are coarsened interstitial markings, slightly asymmetric on the right with a basilar predominance. This may represent chronic interstitial lung disease although a superimposed acute component cannot be excluded. There are no pleural effusions. IMPRESSION: Bilateral interstitial pulmonary opacities, potentially chronic. Clinical and radiographic follow-up is recommended. Electronically signed by: Wyatt Jim M.D. 02/03/2018 12:54 PM Dictated Date/Time: 02/03/2018 12:53 PM Laboratory Results Test 02/03/18 12:02 Immature Granulocyte % (Auto) 0.7 % White Blood Count 8.93 K/uL (4.8-10.8) Red Blood Count 3.90 M/uL (4.7-6.1) Hemoglobin 12.4 g/dL (14.0-18.0) Hematocrit 34.8 % (42-52) Mean Corpuscular Volume 89.2 fL (80-100) Mean Corpuscular Hemoglobin 31.8 pg (25-34) Mean Corpuscular Hemoglobin Concent 35.6 g/dl (32-36) Platelet Count 314 K/uL (130-400) Mean Platelet Volume 8.5 fL (7.4-10.4) Neutrophils (%) (Auto) 65.9 % Lymphocytes (%) (Auto) 23.1 % Monocytes (%) (Auto) 7.7 % Eosinophils (%) (Auto) 1.9 % Basophils (%) (Auto) 0.7 % Neutrophils # (Auto) 5.89 K/uL (1.4-6.5) Lymphocytes # (Auto) 2.06 K/uL (1.2-3.4) Monocytes # (Auto) 0.69 K/uL (0.11-0.59) Eosinophils # (Auto) 0.17 K/uL (0-0.5) Basophils # (Auto) 0.06 K/uL (0-0.2) Immature Granulocyte # (Auto) 0.06 K/uL (0.00-0.02) Prothrombin Time 10.2 SECONDS (9.0-12.0) Prothromb Time International Ratio 1.0 (0.9-1.1) Activated Partial Thromboplast Time 25.7 SECONDS (21.0-31.0) Partial Thromboplastin Ratio 1.0 Total Bilirubin 0.4 mg/dl (0.2-1) Aspartate Amino Transf (AST/SGOT) 20 U/L (15-37) Alanine Aminotransferase (ALT/SGPT) 23 U/L (12-78) Alkaline Phosphatase 84 U/L (45-117) Troponin I < 0.015 ng/ml (0-0.045) Total Protein 7.9 gm/dl (6.4-8.2) Albumin 3.7 gm/dl (3.4-5.0) Globulin 4.2 gm/dl (2.5-4.0) Albumin/Globulin Ratio 0.9 (0.9-2) Laboratory results per my review. ECG Per My Interpretation Indication: other Rate (beats per minute): 72 Rhythm: sinus rhythm Findings: PVC, no acute ischemic change Comparison ECG Date: 01/29/18 Change: no significant change ED Course 1157: The patient was evaluated in room B4B. A complete history and physical examination were performed. 1300: I discussed the case with RAVI Leonardo with GI. She recommends admission to medicine for further management. 1307: I reassessed the patient at this time. He is feeling better and resting comfortably. I discussed the results and treatment plan with the patient and his family. I answered all pertaining questions that they had. They expressed understanding and verbalized agreement. 1322: I spoke with Dr. Boss. We discussed the case. The patient will be evaluated by the [facility] for further management. Medical Decision Differential diagnosis: Etiologies such as diverticulosis, AVM, coagulopathy, colitis, inflammatory bowel disease, malignancy, Ara-Cotto tear, esophagitis, peptic ulcer disease , variceal bleed, gastritis, epistaxis, fissure, hemorrhoids, as well as others were entertained. Nursing notes reviewed. The patient is a 77-year-old male who recently was discharged from our facility for lower GI bleeding and diverticulosis. The patient presents to the emergency department today with worsening symptoms. The patient was found to have gross blood per rectum. His hemoglobin appears stable. I discussed his case with the GI group that he was recently seen by. They recommended that the patient be observed to ensure his hemoglobin did not worsen and that his symptoms did not worsen as well. I discussed this case with the on-call [facility] hospitalist group. They have agreed to evaluate the patient in the emergency department for further management and disposition. I discussed patient's laboratory and radiographic studies with him. Medication Reconcilliation Current Medication List: was personally reviewed by me Blood Pressure Screening Patient's blood pressure: Elevated blood pressure Blood pressure disposition: Elevated BP felt to be situational Consults Time Called: 1250 Consulting Physician: RAVI Leonardo Returned Call: 1300 I discussed the case with RAVI Leonardo with GI. She recommends admission to medicine for further management. Additional Consults: Time Called: 1308 Consulted Physician: Dr. Boss Returned Call: 1322 Additional Comments: I spoke with Dr. Boss. We discussed the case. The patient will be evaluated by the [facility] for further management. Impression Primary Impression: Lower GI bleed Additional Impression: Diverticulosis Scribe Attestation The scribe's documentation has been prepared under my direction and personally reviewed by me in its entirety. I confirm that the note above accurately reflects all work, treatment, procedures, and medical decision making performed by me. Departure Information Dispostion Being Evaluated By Hospitalist Referrals Estevan Trejo M.D. (PCP) Patient Instructions My [facility] Health Problem Qualifiers Additional Impression: Diverticulosis Diverticulosis site: unspecified location Diverticulosis bleeding: diverticulosis with bleeding Qualified Codes: K57.91 - Diverticulosis of intestine, part unspecified, without perforation or abscess with bleeding
--- NOTE | 2018-02-03 12:55 | DIAGNOSTIC IMAGING REPORT ---
CHEST ONE VIEW PORTABLE CLINICAL HISTORY: Respiratory distress COMPARISON STUDY: No previous studies for comparison. FINDINGS: The heart is borderline enlarged. There are coarsened interstitial markings, slightly asymmetric on the right with a basilar predominance. This may represent chronic interstitial lung disease although a superimposed acute component cannot be excluded. There are no pleural effusions. IMPRESSION: Bilateral interstitial pulmonary opacities, potentially chronic. Clinical and radiographic follow-up is recommended. Electronically signed by: Wyatt Jim M.D. 02/03/2018 12:54 PM Dictated Date/Time: 02/03/2018 12:53 PM
[2018-02-03 13:17] VITALS: O2SAT 95; Ht 175.3 cm; Wt 79.7 kg
[2018-02-03] MEDS ORDERED: ACETAMINOPHEN 325 MG TAB PO PRN (13:45)
[2018-02-03] MEDS ORDERED: ONDANSETRON INJ 2 MG/ML 2 ML VIAL IV PRN (13:45)
[2018-02-03] MEDS ORDERED: ZOLPIDEM TARTRATE 5 MG TAB PO PRN (13:45)
--- NOTE | 2018-02-03 14:32 | History and Physical ---
History & Physical Date & Time of Service: Feb 03, 2018 at 13:51 Chief Complaint: Bleeding From Rectum Primary Care Physician: Estevan Trejo M.D. History of Present Illness Source: patient, hospital records 77 y/o M Hx HTN, asthma, hypothyroidism, depression, diverticulitis, recent LGI bleed - no source was identified on colonoscopy 01/31/18. Bleed had resoled spontaneously prior to DC. Pt returns with BRBPR which began. Describes large amount of blood with BM. Rectal exam is grossly (+). Pt denies CP, SOB, lightheadedness, abdominal pain or fevers. Past Medical/Surgical History 1) GI bleed 01/31 - no source determine on colonoscopy 2) HTN 3) Hypothyroidism 4) Asthma 5) Depression 6) Hemorrhoids 7) Diverticulitis Surgical: 1) Hernia repair 2) Cataract 3) Shoulder surgery Family History Patient reports no known family medical history. Social History Smoking Status: Never Smoker Drug Use: none Marital Status: Housing status: lives with family Occupational Status: retired Allergies Coded Allergies: No Known Allergies (Unverified , 01/29/18) Home Medications Scheduled Acetaminophen (Tylenol), 1,000 MG PO AMPM Amlodipine (Norvasc), 5 MG PO DAILY Ascorbic Acid (Vitamin C), 500 MG PO QPM Aspirin (Aspirin Ec), 81 MG PO QPM Atorvastatin (Lipitor), 20 MG PO QPM Azelastine Hcl (Astepro), 2 SPRY LILA DAILY Budesonide/Formoterol Fumarate (Symbicort 80/4.5 Inhaler), 2 PUFFS INH BID Levothyroxine Sodium (Synthroid), 100 MCG PO DAILY Omeprazole (Prilosec), 40 MG PO DAILY Prednisolone Acetate (Ophth) (Pred Forte 1% Oph), 1 DROPS OPL BID Sertraline (Zoloft), 50 MG PO QPM Vitamin E (E-400), 400 UNITS PO DAILY Review of Systems Constitutional: No fever, No chills, No sweats Eyes: No worsening of vision ENT: No hearing loss, No nasal symptoms Respiratory: No cough, No sputum, No wheezing Cardiovascular: No chest pain, No orthopnea Abdomen: + GI bleeding, No pain, No nausea, No vomiting Musculoskeletal: No joint pain Genitourinary - Male: No hematuria, No dysuria Neurologic: No memory loss, No weakness Psychiatric: No depression symptoms Endocrine: No fatigue Hematologic / Lymphatic: + abnormal bleeding/bruising Integumentary: No rash Allergic / Immunologic: No environmental allergies Physical Exam Vital Signs Date Time Temp Pulse Resp B/P (MAP) Pulse Ox O2 Delivery O2 Flow Rate FiO2 02/03/18 13:17 95 Room Air 02/03/18 12:25 70 02/03/18 11:59 95 Room Air 02/03/18 11:36 36.6 79 20 145/80 95 Room Air General Appearance: WD/WN, no apparent distress Head: normocephalic Eyes: normal inspection ENT: normal ENT inspection, pharynx normal Neck: supple, no JVD Respiratory/Chest: chest non-tender, lungs clear, normal breath sounds Cardiovascular: regular rate, rhythm, no edema Abdomen/GI: normal bowel sounds, non tender, soft, + fecal occult blood (As reported by ER attending) Back: normal inspection, no CVA tenderness Extremities/Musculoskelatal: normal inspection, no calf tenderness, normal capillary refill Neurologic/Psych: feeder catcher II-XII nml as tested, no motor/sensory deficits, normal mood/affect Skin: normal color Diagnostics Laboratory Results Results Past 24 Hours Test 02/03/18 12:02 Range/Units White Blood Count 8.93 4.8-10.8 K/uL Red Blood Count 3.90 4.7-6.1 M/uL Hemoglobin 12.4 14.0-18.0 g/dL Hematocrit 34.8 42-52 % Mean Corpuscular Volume 89.2 80-100 fL Mean Corpuscular Hemoglobin 31.8 25-34 pg Mean Corpuscular Hemoglobin Concent 35.6 32-36 g/dl Platelet Count 314 130-400 K/uL Mean Platelet Volume 8.5 7.4-10.4 fL Neutrophils (%) (Auto) 65.9 % Lymphocytes (%) (Auto) 23.1 % Monocytes (%) (Auto) 7.7 % Eosinophils (%) (Auto) 1.9 % Basophils (%) (Auto) 0.7 % Neutrophils # (Auto) 5.89 1.4-6.5 K/uL Lymphocytes # (Auto) 2.06 1.2-3.4 K/uL Monocytes # (Auto) 0.69 0.11-0.59 K/uL Eosinophils # (Auto) 0.17 0-0.5 K/uL Basophils # (Auto) 0.06 0-0.2 K/uL RDW Standard Deviation 42.2 36.4-46.3 fL RDW Coefficient of Variation 13.0 11.5-14.5 % Immature Granulocyte % (Auto) 0.7 % Immature Granulocyte # (Auto) 0.06 0.00-0.02 K/uL Prothrombin Time 10.2 9.0-12.0 SECONDS Prothromb Time International Ratio 1.0 0.9-1.1 Activated Partial Thromboplast Time 25.7 21.0-31.0 SECONDS Partial Thromboplastin Ratio 1.0 Sodium Level 133 136-145 mmol/L Potassium Level 3.6 3.5-5.1 mmol/L Chloride Level 99 98-107 mmol/L Carbon Dioxide Level 26 21-32 mmol/L Anion Gap 8.0 3-11 mmol/L Blood Urea Nitrogen 14 7-18 mg/dl Creatinine 0.93 0.60-1.40 mg/dl Est Creatinine Clear Calc Drug Dose 66.6 ml/min Estimated GFR () 91.5 Estimated GFR (Non- 78.9 BUN/Creatinine Ratio 15.4 10-20 Random Glucose 94 70-99 mg/dl Calcium Level 9.2 8.5-10.1 mg/dl Total Bilirubin 0.4 0.2-1 mg/dl Aspartate Amino Transf (AST/SGOT) 20 15-37 U/L Alanine Aminotransferase (ALT/SGPT) 23 12-78 U/L Alkaline Phosphatase 84 45-117 U/L Troponin I < 0.015 0-0.045 ng/ml Total Protein 7.9 6.4-8.2 gm/dl Albumin 3.7 3.4-5.0 gm/dl Globulin 4.2 2.5-4.0 gm/dl Albumin/Globulin Ratio 0.9 0.9-2 Impression Assessment and Plan 77 y/o M Hx HTN, asthma, hypothyroidism, depression, diverticulitis, recent LGI bleed - no source was identified on colonoscopy 01/31/18. Bleed had resoled spontaneously prior to DC. Pt returns with BRBPR which began. Describes large amount of blood with BM. Rectal exam is grossly (+). Pt denies CP, SOB, lightheadedness, abdominal pain or fevers. Hb has not declined form previous value at the time of admission. 1) GI bleed - recurrence - no source identified. Pt will be placed on a clear diet. Hb will be trended pending GI evaluation. Additional intervention to discretion of GI - may need a capsule study. 2) Hypothyroidism - cont Synthroid 3) HTN - cont Norvasc with parameters 4) Asthma - cont inhalers as provided 5) Depression - cont Fluoxetine Full code - SCDs Total time for this admit including review of labs, meds imaging, records, discussion with pt and ER attending 34 min Advanced Directives Existing Living Will: Yes Existing Power of [employer] Lieutenant: Yes (EDWARD SON ) Resuscitation Status VTE Prophylaxis Will order VTE Prophylaxis: Yes
[2018-02-03 14:45] VITALS: BP 139/75; PULSE 82; TEMP 36.8; O2SAT 90
[2018-02-03 15:10] VITALS: BP 131/89; PULSE 82; TEMP 36.6; O2SAT 92
[2018-02-03] MEDS ORDERED: IV FLUIDS COMPLETED PRN (15:15)
[2018-02-03] MEDS: NSS + 20MEQ KCL 1000ML 1,000 ML IV SCH (15:58)
--- NOTE | 2018-02-03 16:08 | Gastrointestinal Consultation ---
Gastrointestinal Consultation Date of Consultation: Feb 03, 2018 Attending Physician: Dr. Boss Consulting Physician: Dr. Marcelino Reason for Consultation: Rectal Bleeding History of Present Illness Patient is a 77 year old male patient of Dr. Estevan Trejo with a hx of HTN, asthma, Hypothyroidism, depression, diverticulitis who underwent colonoscopy for rectal bleeding on 01/31/18 w/o cause of bleeding. There was a small polyp, internal hemorrhoids and a diverticula present. It was presumed that he experienced a diverticular bleed. During that admission, his Hb remained stable w/o the need for blood transfusion. Hb was 11.3 at the time of discharge. He returned to the ED today as he experienced rectal bleeding again today, a large amt. On arrival, Hb was 12.4, BUN normal. He is seen and examined while he is resting in bed. He is awake, alert, oriented and denies abdominal pain. He has remained hemodynamically stable. Past Medical/Surgical History Medical Problems: (1) Diverticulosis Status: Acute (2) GI bleed Status: Acute (3) Hypotension Status: Acute Past Medical History: 1) GI bleed 01/31 - no source determine on colonoscopy 2) HTN 3) Hypothyroidism 4) Asthma 5) Depression 6) Hemorrhoids 7) Diverticulitis Past Surgical History: 1) Hernia repair 2) Cataract 3) Shoulder surgery 4) Colonoscopy 01/31/18 as mentioned in the HPI Family History Patient reports no known family medical history. Social History Smoking Status: Never Smoker Alcohol Use: none Drug Use: none Marital Status: Housing Status: lives with significant other Occupation Status: retired Allergies Coded Allergies: No Known Allergies (Unverified , 02/03/18) Current Medications Home Meds and Scripts Medications Dose Route/Sig Max Daily Dose Days Date Category Tylenol (Acetaminophen) 500 Mg Tab 1,000 Mg PO AMPM 01/29/18 Reported Symbicort 80/4.5 Inhaler (Budesonide/Formoterol Fumarate) Aero 2 Puffs INH BID 01/29/18 Reported Synthroid (Levothyroxine Sodium) 100 Mcg Tab 100 Mcg PO DAILY 01/29/18 Reported Norvasc (Amlodipine Besylate) 5 Mg Tab 5 Mg PO DAILY 01/29/18 Reported Lipitor (Atorvastatin Calcium) 20 Mg Tab 20 Mg PO QPM 01/29/18 Reported Zoloft (Sertraline HCl) 50 Mg Tab 50 Mg PO QPM 01/29/18 Reported Vitamin C (Ascorbic Acid) 500 Mg Cap 500 Mg PO QPM 01/29/18 Reported Aspirin Ec (Aspirin) 81 Mg Tab 81 Mg PO QPM 01/29/18 Reported E-400 (Vitamin E) 400 Unit Cap 400 Units PO DAILY 01/29/18 Reported Astepro (Azelastine Hcl) 0.15 % Spr 2 Selz LILA DAILY 30 01/29/18 Reported Prilosec (Omeprazole) 40 Mg Cap 40 Mg PO DAILY 01/29/18 Reported Pred Forte 1% Oph (Prednisolone Acetate (Ophth)) 1 % Brianda 1 Drops OPL BID 01/29/18 Reported Review of Systems Constitutional: No fever, No chills, No sweats, No weight loss, No weakness Eyes: No eye pain, No redness ENT: No sore throat, No trouble swallowing, No pain on swallowing Respiratory: No cough, No wheezing, No shortness of breath, No dyspnea on exertion Cardiac: No chest pain, No edema, No palpitations Abdomen: + see HPI, + GI bleeding, No pain, No nausea, No vomiting, No diarrhea , No constipation Neuro: No memory loss, No weakness, No numbness/tingling, No vertigo, No balance problems Psych: No depression symptoms, No anxiety, No insomnia Heme: No abnormal bleeding/bruising, No night sweats Endo: No excessive thirst, No excessive urination Skin: No rash, No itch, No new/changing skin lesions, No jaundice Physical Exam Date Time Temp Pulse Resp B/P (MAP) Pulse Ox O2 Delivery O2 Flow Rate FiO2 02/03/18 15:10 36.6 82 16 131/89 (103) 92 Room Air 02/03/18 14:13 69 18 143/82 97 Room Air 02/03/18 13:17 95 Room Air 02/03/18 12:25 70 02/03/18 11:59 95 Room Air 02/03/18 11:36 36.6 79 20 145/80 95 Room Air General Appearance: no apparent distress Eyes: normal inspection, EOMI Neck: supple, no adenopathy, thyroid normal Respiratory/Chest: chest non-tender, lungs clear, normal breath sounds, no accessory muscle use Cardiovascular: regular rate, rhythm, no JVD, no murmur Abdomen: normal bowel sounds, non tender, soft, no organomegaly Extremities: normal inspection, no pedal edema, normal capillary refill Neurologic/Psych: alert, normal mood/affect, oriented x 3 Skin: normal color, no jaundice, warm/dry, no rash Laboratory Results Last 24 Hours Test 02/03/18 12:02 White Blood Count 8.93 K/uL Red Blood Count 3.90 M/uL Hemoglobin 12.4 g/dL Hematocrit 34.8 % Mean Corpuscular Volume 89.2 fL Mean Corpuscular Hemoglobin 31.8 pg Mean Corpuscular Hemoglobin Concent 35.6 g/dl Platelet Count 314 K/uL Mean Platelet Volume 8.5 fL Neutrophils (%) (Auto) 65.9 % Lymphocytes (%) (Auto) 23.1 % Monocytes (%) (Auto) 7.7 % Eosinophils (%) (Auto) 1.9 % Basophils (%) (Auto) 0.7 % Neutrophils # (Auto) 5.89 K/uL Lymphocytes # (Auto) 2.06 K/uL Monocytes # (Auto) 0.69 K/uL Eosinophils # (Auto) 0.17 K/uL Basophils # (Auto) 0.06 K/uL RDW Standard Deviation 42.2 fL RDW Coefficient of Variation 13.0 % Immature Granulocyte % (Auto) 0.7 % Immature Granulocyte # (Auto) 0.06 K/uL Prothrombin Time 10.2 SECONDS Prothromb Time International Ratio 1.0 Activated Partial Thromboplast Time 25.7 SECONDS Partial Thromboplastin Ratio 1.0 Sodium Level 133 mmol/L Potassium Level 3.6 mmol/L Chloride Level 99 mmol/L Carbon Dioxide Level 26 mmol/L Anion Gap 8.0 mmol/L Blood Urea Nitrogen 14 mg/dl Creatinine 0.93 mg/dl Est Creatinine Clear Calc Drug Dose 66.6 ml/min Estimated GFR () 91.5 Estimated GFR (Non- 78.9 BUN/Creatinine Ratio 15.4 Random Glucose 94 mg/dl Calcium Level 9.2 mg/dl Total Bilirubin 0.4 mg/dl Aspartate Amino Transf (AST/SGOT) 20 U/L Alanine Aminotransferase (ALT/SGPT) 23 U/L Alkaline Phosphatase 84 U/L Troponin I < 0.015 ng/ml Total Protein 7.9 gm/dl Albumin 3.7 gm/dl Globulin 4.2 gm/dl Albumin/Globulin Ratio 0.9 Impression Patient is a 77 year old male with painless rectal bleeding. He remains hemodynamically stable. Because no pain and hx of diverticulosis and hemorrhoids on recent colonoscopy, his bleeding is likely from a diverticular bleed or a hemorrhoidal bleed. Plan 1. If brisk bleeding continues, then would recommend a GI bleeding scan. 2. No plans for endoscopy at this time, though would consider if bleeding continued. For now, pt prefers not to undergo repeat colonoscopy. 3. 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 Discussed with pt and family. I have seen , examined and agree with the plan as outlined by RAVI Farah as above. -exam reveals soft abd -colonoscopy two days ago with likely diverticular origin -HD stable -If has repeat bleeding then would do tagged RBC scan +/- Surgical resection vs IR embolization
[2018-02-03] MEDS ORDERED: SERTRALINE HCL 50 MG TAB PO SCH (21:00)
[2018-02-03] MEDS: BUDESONIDE/FORMOTEROL FUMARATE 80/4.5 60 PUFFS/INHALER INH SCH (21:00)
[2018-02-03] MEDS: ATORVASTATIN 20 MG TAB PO SCH (21:07)
[2018-02-03] MEDS: PrednisoLONE ACET 1% OP SUSP 5 ML BTL OPL SCH (21:08)
[2018-02-03 23:32] VITALS: BP 118/72; PULSE 58; TEMP 36.9; O2SAT 93
[2018-02-04] MEDS: NSS + 20MEQ KCL 1000ML 1,000 ML IV SCH (04:48)
[2018-02-04] MEDS: LEVOTHYROXINE 100 MCG TAB PO SCH (05:47)
[2018-02-04 07:27] VITALS: BP 121/72; PULSE 62; TEMP 36.8; O2SAT 95
[2018-02-04] MEDS: PrednisoLONE ACET 1% OP SUSP 5 ML BTL OPL SCH ×2 (09:53→21:00)
[2018-02-04] MEDS: AMLODIPINE BESYLATE 5 MG TAB PO SCH (09:53)
[2018-02-04] MEDS: PANTOprazole SOD 40 MG TAB PO SCH (09:53)
[2018-02-04] MEDS: BUDESONIDE/FORMOTEROL FUMARATE 80/4.5 60 PUFFS/INHALER INH SCH ×2 (09:53→21:18)
[2018-02-04 09:57] LABS: HEMATOCRIT 32.4 % (42-52); HEMOGLOBIN 11.2 g/dL (14.0-18.0); MEAN CELL VOLUME 90.5 fL (80-100); MEAN CORPUSCULAR HEMOGLOBIN 31.3 pg (25-34); MEAN CORPUSCULAR HGB CONC 34.6 g/dl (32-36); MEAN PLATELET VOLUME 8.3 fL (7.4-10.4); PLATELET COUNT 288 K/uL (130-400); RED CELL DISTRIBUTION WIDTH CV 13.4 % (11.5-14.5); RED CELL DISTRIBUTION WIDTH SD 43.8 fL (36.4-46.3); WHITE BLOOD COUNT 7.26 K/uL (4.8-10.8)
[2018-02-04 10:15] LABS: CALCIUM 8.4 mg/dl (8.5-10.1); CREATININE 1.01 mg/dl (0.60-1.40); POTASSIUM 3.7 mmol/L (3.5-5.1)
[2018-02-04] MEDS ORDERED: SNG10 PO (14:45)
[2018-02-04] MEDS ORDERED: SERT-234 PO (14:45)
--- NOTE | 2018-02-04 14:53 | Hospitalist Progress Note ---
Hospitalist Progress Note Date of Service Feb 04, 2018. Subjective Pt evaluation today including: conversation w/ patient, conversation w/ family ( at bedside), physical exam, chart review, lab review, review of inpatient medication list Pain: None PO Intake: Tolerating clear liquids Voiding: no voiding problems Patient reports feeling much improved. He denies any chest pain or shortness of breath. He states he had felt fatigued upon admission yesterday, but he denies any weakness or fatigue currently. He is tolerating clear liquids well without any abdominal pain, nausea, or vomiting. He denies any bloody stools today. He states that he saw a bit of blood upon wiping this morning but otherwise denies hematochezia or melena. The patient denies fevers, chills, sweats, chest pain, palpitations, claudication, cough, wheezing, shortness of breath, nausea, vomiting, abdominal pain, dysuria, hematuria, urinary retention , paralysis, weakness, numbness and tingling. Additional Comments: See HPI for pertinent positives and negatives. All other systems reviewed and negative. Objective Vital Signs Date Time Temp Pulse Resp B/P (MAP) Pulse Ox O2 Delivery O2 Flow Rate FiO2 02/04/18 07:57 Room Air 02/04/18 07:27 36.8 62 16 121/72 (88) 95 Room Air 02/03/18 23:32 36.9 58 15 118/72 (87) 93 Room Air 02/03/18 23:30 Room Air 02/03/18 15:40 Room Air 02/03/18 15:10 36.6 82 16 131/89 (103) 92 Room Air 02/03/18 14:45 36.8 82 16 139/75 (96) 90 Room Air Physical Exam Notes: General appearance: Well-developed, well-nourished, no apparent distress Head: Normocephalic, atraumatic Eyes: Normal inspection, PERRL, EOMI ENT: Normal ENT inspection, hearing grossly normal, pharynx normal Neck: Supple, no JVD, trachea midline Respiratory/Chest: +Crackles in bases bilaterally. Normal breath sounds, no respiratory distress Cardiovascular: Regular rate & rhythm, no gallop, no murmur Abdomen/GI: Normal bowel sounds, non-tender, soft Extremities/Musculoskeletal: Normal inspection, no calf tenderness, no pedal edema Neurological/Psych: Alert, normal mood/affect, oriented x 3 Skin: Normal color, warm/dry, no rash Laboratory Results Last 24 Hours Test 02/03/18 19:59 02/03/18 23:43 02/04/18 04:02 02/04/18 08:04 Hemoglobin 11.7 g/dL 11.3 g/dL 11.7 g/dL Bedside Glucose 97 mg/dl Test 02/04/18 09:25 White Blood Count 7.26 K/uL Red Blood Count 3.58 M/uL Hemoglobin 11.2 g/dL Hematocrit 32.4 % Mean Corpuscular Volume 90.5 fL Mean Corpuscular Hemoglobin 31.3 pg Mean Corpuscular Hemoglobin Concent 34.6 g/dl RDW Standard Deviation 43.8 fL RDW Coefficient of Variation 13.4 % Platelet Count 288 K/uL Mean Platelet Volume 8.3 fL Sodium Level 137 mmol/L Potassium Level 3.7 mmol/L Chloride Level 105 mmol/L Carbon Dioxide Level 25 mmol/L Anion Gap 8.0 mmol/L Blood Urea Nitrogen 12 mg/dl Creatinine 1.01 mg/dl Est Creatinine Clear Calc Drug Dose 61.3 ml/min Estimated GFR () 82.8 Estimated GFR (Non- 71.4 BUN/Creatinine Ratio 11.7 Random Glucose 124 mg/dl Calcium Level 8.4 mg/dl Assessment and Plan 77 y/o male with a history of recent GI bleed a few days ago, HTN, HLD, asthma, hypothyroidism, depression, BPH, and GERD who presents with bright red blood per rectum. Pt had recent lower GI bleed 01/29 but no source was identified on colonoscopy completed 01/31. GI bleed recurrence -Stable, admit to med/surg -GI consulted, appreciate recs: likely diverticular or hemorrhoidal bleed. Will not repeat colonoscopy at this time. If brisk bleeding occurs, could do GI bleeding scan vs colon resection or IR embolization -No significant bleeding today, advance to low fiber diet -D/C IVF as tolerating diet and crackles on exam -Hgb has remained stable 11-12 HTN, HLD--stable -Hold ASA due to GIB -Continue amlodipine 5 mg PO qd, Lipitor 20 mg PO hs Asthma -Continue Symbicort BID and Singulair Hypothyroidism -Continue Synthroid 100 mcg PO qd Depression -Continue Zoloft 100 mg PO qd GERD -Prilosec converted to Protonix DVT prophylaxis -Hold chemical ppx due to GIB -SCDs Code Status -Level I, FULL RESUSCITATION STATUS Dispo -From home -Will monitor one more day for any recurrence of bleeding and to ensure tolerating solid food diet, anticipate d/c in 1 day Full code - SCDs Total time for this admit including review of labs, meds imaging, records, discussion with pt and ER attending 34 min
[2018-02-04 15:14] VITALS: BP 123/71; PULSE 64; TEMP 36.6; O2SAT 94
--- NOTE | 2018-02-04 16:15 | Gastroenterology Progress Note ---
Progress Note Date of Service: Feb 04, 2018 Subjective Pt evaluation today including: conversation w/ patient, conversation w/ family (wifer), physical exam, chart review, lab review, review of studies, review of inpatient medication list and daughter at bedside Review of Systems Constitutional: No fever ENT: No hearing loss Respiratory: No cough Cardiac: No chest pain Abdomen: + see HPI, + diarrhea (one loose bloody BM this morning), + GI bleeding, No pain, No nausea, No vomiting, No constipation Musculoskeletal: No joint pain Male : No dysuria Neuro: No memory loss Psych: No depression symptoms Heme: No abnormal bleeding/bruising Endo: No fatigue Skin: No rash, No color change, No jaundice Medications Current Inpatient Medications Medications (Trade) Dose Ordered Sig/Angy Route Start Time Stop Time Status Last Admin Dose Admin Acetaminophen (Tylenol Tab) 650 mg Q4H PRN PO 02/03/18 13:45 03/05/18 13:44 02/04/18 15:36 650 MG Zolpidem Tartrate (Ambien Tab) 5 mg HSZ PRN PO 02/03/18 13:45 03/05/18 13:44 Ondansetron HCl (Zofran Inj) 4 mg Q6H PRN IV 02/03/18 13:45 03/05/18 13:44 Amlodipine Besylate (Norvasc Tab) 5 mg DAILY PO 02/04/18 09:00 03/06/18 08:59 02/04/18 09:53 5 MG Atorvastatin Calcium (Lipitor Tab) 20 mg QPM PO 02/03/18 21:00 03/05/18 20:59 02/03/18 21:07 20 MG Budesonide/ Formoterol Fumarate (Symbicort 80/ 4.5 Inh) 2 puffs BID INH 02/03/18 21:00 03/05/18 20:59 02/04/18 09:53 2 PUFFS Levothyroxine Sodium (Synthroid Tab) 100 mcg DAILYBB PO 02/04/18 06:00 03/06/18 05:59 02/04/18 05:47 100 MCG Prednisolone Acetate (Pred Forte 1% Oph Susp) 1 drops BID OPL 02/03/18 21:00 03/05/18 20:59 02/04/18 09:53 1 DROPS Pantoprazole Sodium (Protonix Tab) 40 mg DAILY PO 02/04/18 09:00 03/06/18 08:59 02/04/18 09:53 40 MG Miscellaneous (Iv Fluids Completed) 1 ea PRN PRN N/A 02/03/18 15:15 02/03/19 15:14 Montelukast Sodium (Singulair Tab) 10 mg HS PO 02/04/18 21:00 03/06/18 20:59 Sertraline HCl (Zoloft Tab) 100 mg HS PO 02/04/18 21:00 03/06/18 20:59 Objective Vital Signs Date Time Temp Pulse Resp B/P (MAP) Pulse Ox O2 Delivery O2 Flow Rate FiO2 02/04/18 15:14 36.6 64 20 123/71 (88) 94 Room Air 02/04/18 07:57 Room Air 02/04/18 07:27 36.8 62 16 121/72 (88) 95 Room Air 02/03/18 23:32 36.9 58 15 118/72 (87) 93 Room Air 02/03/18 23:30 Room Air Physical Exam General Appearance: no apparent distress Neck: no JVD Respiratory/Chest: lungs clear Cardiovascular: regular rate, rhythm, no edema, no JVD, no murmur Abdomen: non tender, soft Extremities: normal inspection, no pedal edema Neurologic/Psych: alert, normal mood/affect, oriented x 3 Skin: no jaundice Laboratory Results Last 24 Hours Test 02/03/18 19:59 02/03/18 23:43 02/04/18 04:02 02/04/18 08:04 Hemoglobin 11.7 g/dL 11.3 g/dL 11.7 g/dL Bedside Glucose 97 mg/dl Test 02/04/18 09:25 White Blood Count 7.26 K/uL Red Blood Count 3.58 M/uL Hemoglobin 11.2 g/dL Hematocrit 32.4 % Mean Corpuscular Volume 90.5 fL Mean Corpuscular Hemoglobin 31.3 pg Mean Corpuscular Hemoglobin Concent 34.6 g/dl RDW Standard Deviation 43.8 fL RDW Coefficient of Variation 13.4 % Platelet Count 288 K/uL Mean Platelet Volume 8.3 fL Sodium Level 137 mmol/L Potassium Level 3.7 mmol/L Chloride Level 105 mmol/L Carbon Dioxide Level 25 mmol/L Anion Gap 8.0 mmol/L Blood Urea Nitrogen 12 mg/dl Creatinine 1.01 mg/dl Est Creatinine Clear Calc Drug Dose 61.3 ml/min Estimated GFR () 82.8 Estimated GFR (Non- 71.4 BUN/Creatinine Ratio 11.7 Random Glucose 124 mg/dl Calcium Level 8.4 mg/dl Assessment and Plan Mr. Valderrama is a 77 yr old male with rectal bleeding who underwent recent colonoscopy w/o cause of the bleeding but with diverticulosis so this is though to be a diverticular bleed. Plan: Explained to pt/family that these are typically self limited though they can recur. We are unable to do a bleeding scan because it would not be sensitive to a very low rate of blood loss. Colonoscopy would not likely yield active bleeding and/or change in management. Agree with regular consistency diet. Would continue to monitor overnight and would consider discharge tomorrow if no increase in bleeding. If increased bleeding then would recommend a GI bleeding scan and if a sight of bleeding is found then transfer to a facility with interventional radiology for embolization or would consider surgery for this pt. If transferred pt prefers a [facility] facility vs. [facility]. I have seen , examined and agree with the plan as outlined by RAVI Farah as above. -exam reveals soft abd -No signs of bleeding, if has bleeding then would do tagged rbc scan and IR vs surgical resection
[2018-02-04 20:28] VITALS: BP 132/82; PULSE 59; TEMP 36.8; O2SAT 95
[2018-02-04] MEDS ORDERED: MONTELUKAST SOD 10 MG TAB PO SCH (21:00)
[2018-02-04] MEDS ORDERED: SERTRALINE HCL 100 MG TAB PO SCH (21:00)
[2018-02-04] MEDS: ATORVASTATIN 20 MG TAB PO SCH (21:18)
[2018-02-04 23:15] VITALS: BP 137/74; PULSE 60; TEMP 36.8; O2SAT 94
[2018-02-05] MEDS: LEVOTHYROXINE 100 MCG TAB PO SCH (05:50)
[2018-02-05 06:41] LABS: HEMATOCRIT 31.4 % (42-52); HEMOGLOBIN 10.9 g/dL (14.0-18.0); MEAN CELL VOLUME 90.2 fL (80-100); MEAN CORPUSCULAR HEMOGLOBIN 31.3 pg (25-34); MEAN CORPUSCULAR HGB CONC 34.7 g/dl (32-36); MEAN PLATELET VOLUME 8.1 fL (7.4-10.4); PLATELET COUNT 298 K/uL (130-400); RED CELL DISTRIBUTION WIDTH CV 13.6 % (11.5-14.5); RED CELL DISTRIBUTION WIDTH SD 44.1 fL (36.4-46.3); WHITE BLOOD COUNT 7.31 K/uL (4.8-10.8)
[2018-02-05 07:14] LABS: CALCIUM 8.6 mg/dl (8.5-10.1); CREATININE 1.04 mg/dl (0.60-1.40); POTASSIUM 3.9 mmol/L (3.5-5.1)
[2018-02-05 07:50] VITALS: BP 138/78; PULSE 70; TEMP 36.8; O2SAT 94
[2018-02-05 07:56] VITALS: O2SAT 94
[2018-02-05] MEDS: BUDESONIDE/FORMOTEROL FUMARATE 80/4.5 60 PUFFS/INHALER INH SCH (09:00)
[2018-02-05] MEDS: PANTOprazole SOD 40 MG TAB PO SCH (09:01)
[2018-02-05] MEDS: PrednisoLONE ACET 1% OP SUSP 5 ML BTL OPL SCH (09:01)
[2018-02-05] MEDS: AMLODIPINE BESYLATE 5 MG TAB PO SCH (09:01)
--- NOTE | 2018-02-05 11:25 | Gastroenterology Progress Note ---
Progress Note Date of Service: Feb 05, 2018 Subjective Pt evaluation today including: conversation w/ patient, physical exam, chart review, lab review, review of studies, conversation w/ [employer] consultant Mr Valderrama an 86 year admitted last Thursday with rectal bleeding. Colonoscopy w/ o obvious cuase but likely diverticular. Discharged, only to return on on 02/02 with a second episode of painless rectal bleeding. Hb 15.5 on 01/29, then 11.1 on discharge 01/31. On arrival for this admission Hb 12.3, yesterday morning 11.7 and11.2 and this morning 10.9. Yesterday morning he had a moderate blood BM. Since then, he had a small amt of bright red blood on the toilet paper but not mixed with the fecal material once and one other trip to the with a small amt of rectal bleeding. He feels well and asks for discharge. Eating well. Continues w/o abdominal pain, nausea or vomiting. Review of Systems Constitutional: No fever ENT: No hearing loss Cardiac: No see HPI Abdomen: + GI bleeding, No pain, No nausea, No vomiting, No constipation Musculoskeletal: No joint pain Male : No dysuria Neuro: No memory loss Psych: No depression symptoms Endo: No fatigue Skin: No rash Medications Current Inpatient Medications Medications (Trade) Dose Ordered Sig/Angy Route Start Time Stop Time Status Last Admin Dose Admin Acetaminophen (Tylenol Tab) 650 mg Q4H PRN PO 02/03/18 13:45 03/05/18 13:44 02/04/18 15:36 650 MG Zolpidem Tartrate (Ambien Tab) 5 mg HSZ PRN PO 02/03/18 13:45 03/05/18 13:44 Ondansetron HCl (Zofran Inj) 4 mg Q6H PRN IV 02/03/18 13:45 03/05/18 13:44 Amlodipine Besylate (Norvasc Tab) 5 mg DAILY PO 02/04/18 09:00 03/06/18 08:59 02/05/18 09:01 5 MG Atorvastatin Calcium (Lipitor Tab) 20 mg QPM PO 02/03/18 21:00 03/05/18 20:59 02/04/18 21:18 20 MG Budesonide/ Formoterol Fumarate (Symbicort 80/ 4.5 Inh) 2 puffs BID INH 02/03/18 21:00 03/05/18 20:59 02/05/18 09:00 2 PUFFS Levothyroxine Sodium (Synthroid Tab) 100 mcg DAILYBB PO 02/04/18 06:00 03/06/18 05:59 02/05/18 05:50 100 MCG Prednisolone Acetate (Pred Forte 1% Oph Susp) 1 drops BID OPL 02/03/18 21:00 03/05/18 20:59 02/05/18 09:01 1 DROPS Pantoprazole Sodium (Protonix Tab) 40 mg DAILY PO 02/04/18 09:00 03/06/18 08:59 02/05/18 09:01 40 MG Miscellaneous (Iv Fluids Completed) 1 ea PRN PRN N/A 02/03/18 15:15 02/03/19 15:14 Montelukast Sodium (Singulair Tab) 10 mg HS PO 02/04/18 21:00 03/06/18 20:59 02/04/18 21:19 10 MG Sertraline HCl (Zoloft Tab) 100 mg HS PO 02/04/18 21:00 03/06/18 20:59 02/04/18 21:19 100 MG Objective Vital Signs Date Time Temp Pulse Resp B/P (MAP) Pulse Ox O2 Delivery O2 Flow Rate FiO2 02/05/18 07:56 94 Room Air 02/05/18 07:50 36.8 70 15 138/78 (98) 94 Room Air 02/05/18 07:40 Room Air 02/04/18 23:20 Room Air 02/04/18 23:15 36.8 60 15 137/74 (95) 94 Room Air 02/04/18 20:28 36.8 59 16 132/82 (99) 95 Room Air 02/04/18 15:30 Room Air 02/04/18 15:14 36.6 64 20 123/71 (88) 94 Room Air Physical Exam General Appearance: no apparent distress Neck: supple, thyroid normal, no JVD Respiratory/Chest: lungs clear Cardiovascular: regular rate, rhythm, no JVD, no murmur Abdomen: non tender, soft Extremities: no pedal edema Neurologic/Psych: alert, normal mood/affect, oriented x 3 Skin: no jaundice Laboratory Results Last 24 Hours Test 02/05/18 06:24 White Blood Count 7.31 K/uL Red Blood Count 3.48 M/uL Hemoglobin 10.9 g/dL Hematocrit 31.4 % Mean Corpuscular Volume 90.2 fL Mean Corpuscular Hemoglobin 31.3 pg Mean Corpuscular Hemoglobin Concent 34.7 g/dl RDW Standard Deviation 44.1 fL RDW Coefficient of Variation 13.6 % Platelet Count 298 K/uL Mean Platelet Volume 8.1 fL Sodium Level 138 mmol/L Potassium Level 3.9 mmol/L Chloride Level 104 mmol/L Carbon Dioxide Level 27 mmol/L Anion Gap 7.0 mmol/L Blood Urea Nitrogen 15 mg/dl Creatinine 1.04 mg/dl Est Creatinine Clear Calc Drug Dose 59.5 ml/min Estimated GFR () 79.9 Estimated GFR (Non- 68.9 BUN/Creatinine Ratio 14.8 Random Glucose 102 mg/dl Calcium Level 8.6 mg/dl Assessment and Plan Mr. Valderrama is a 77 yr old male with rectal bleeding who underwent recent colonoscopy w/o cause of the bleeding but with diverticulosis so this is though to be a diverticular bleed. Bleeding has decreased. He remains hemodynamically stable, w/o need for blood transfusion. Plan: OK for discharge today, on a regular diet. Would check Hb on Thursday (3 days). No repeat endoscopy recommended. Diverticular bleeding may recur. If mild amt of blood loss, then contact PCP to check labs if large amt of rectal bleeding then recommend presenting to the ED.
--- NOTE | 2018-02-05 13:06 | Discharge Instructions ---
Discharge Instructions Date of Service Feb 05, 2018. Admission Reason for Admission: Lower Gi Bleed Discharge Discharge Diagnosis / Problem: Lower gastrointestinal bleed Discharge Goals Goal(s): Decrease discomfort, Diagnostic testing, Therapeutic intervention Activity Recommendations Activity Limitations: resume your previous activity (as tolerated) . Instructions / Follow-Up Instructions / Follow-Up You were admitted to the hospital after presenting with rectal bleeding after another recent lower gastrointestinal bleed. Since you had just had a normal colonoscopy a few days prior to admission, another endoscopy was not repeated. Your bleeding significantly improved by itself and your blood counts have remained stable. 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 You are now medically stable for discharge as the bleeding is resolved. Medications: *No changes have been made to your medications. *DO NOT take meloxicam as this may contribute to the bleeding. Recommendations: *You may have more small bleeds due to your hemorrhoids and the diverticula in your colon. Continue to monitor this. If you are having more bleeding, please call your primary care provider, Dr. Trejo, so he can recheck your blood counts and determine if you need to return to the hospital. If you are having very significant bleeding with accompanied weakness, fatigue, shortness of breath, chest pain, palpitations, or dizziness, return to the hospital. Follow up: *You will be scheduled to follow up with your primary care provider. Please seek medical attention if you experience fevers, chills, sweats, dizziness/lightheadedness, loss of consciousness, chest pain, shortness of breath, nausea, vomiting, numbness or tingling. Current Hospital Diet Patient's current hospital diet: AHA Diet (Heart Healthy), Low Fiber Diet Discharge Diet Recommended Diet: AHA Diet (Heart Healthy), Low Fiber Diet Pending Studies Studies pending at discharge: no Laboratory Results Lipid Panel Test 12/23/17 09:05 Range/Units Triglycerides Level 146 0-150 mg/dl Cholesterol Level 162 0-200 mg/dl HDL Cholesterol 45 mg/dl Cholesterol/HDL Ratio 3.6 LDL Cholesterol, Calculated 88 mg/dl Medical Emergencies . Who to Call and When: Medical Emergencies: If at any time you feel your situation is an emergency, please call 911 immediately. . Non-Emergent Contact Non-Emergency issues call your: Primary Care Provider Call Non-Emergent contact if: you have a fever, you have any medication questions . Past History Medical & Surgical History: (1) Lower GI bleed . "Provider Documentation" section prepared by Lolly Charles. .
[2018-02-05 13:12] VITALS: BP 138/78; PULSE 70; TEMP 36.8; O2SAT 94
--- NOTE | 2018-02-05 15:35 | Discharge Summary ---
Discharge Summary Date of Service Feb 05, 2018. Discharge Summary Admission Date: Feb 03, 2018 at 13:40 Discharge Date: Feb 05, 2018 Discharge Disposition: Home Principal Diagnosis: Lower GI bleed Problems/Secondary Diagnoses: HTN, HLD, asthma, hypothyroidism, depression, BPH, GERD Consultations: Gastroenterology Medication Reconciliation Continued Medications: Acetaminophen (Tylenol) 500 Mg Tab 1000 MG PO AMPM, TAB Amlodipine (Norvasc) 5 Mg Tab 5 MG PO DAILY, TAB Ascorbic Acid (Vitamin C) 500 Mg Cap 500 MG PO QPM Aspirin (Aspirin Ec) 81 Mg Tab 81 MG PO QPM Atorvastatin (Lipitor) 20 Mg Tab 20 MG PO QPM, TAB Azelastine Hcl (Astepro) 0.15 % Spr 2 SPRY LILA DAILY for 30 Days, #30 ML 5 Refills Budesonide/Formoterol Fumarate (Symbicort 80/4.5 Inhaler) Aero 2 PUFFS INH BID, INHALER Levothyroxine Sodium (Synthroid) 100 Mcg Tab 100 MCG PO DAILY, TAB Montelukast Sod (Montelukast Sodium) 10 Mg Tab 10 MG PO DAILY Omeprazole (Prilosec) 40 Mg Cap 40 MG PO DAILY, CAP Prednisolone Acetate (Ophth) (Pred Forte 1% Oph) 1 % Brianda 1 DROPS OPL BID, #10 ML Sertraline (Zoloft) 100 Mg Tab 1 TAB PO DAILY for 90 Days, #90 TAB 1 Refill Vitamin E (E-400) 400 Unit Cap 400 UNITS PO DAILY Discharge Exam Patient reports feeling well. He states he has not had any more significant bleeding, only some blood when wiping. He denies any complaints and is very eager to be discharged. The patient denies fevers, chills, sweats, chest pain, palpitations, claudication, cough, wheezing, shortness of breath, nausea, vomiting, abdominal pain, dysuria, hematuria, urinary retention, paralysis, weakness, numbness and tingling. Constitutional: No fever, No chills, No sweats Eyes: No worsening of vision, No eye pain, No diplopia ENT: No hearing loss, No nasal symptoms, No trouble swallowing Respiratory: No cough, No wheezing, No shortness of breath Cardiovascular: No chest pain, No claudication, No palpitations Abdomen: No pain, No nausea, No vomiting Musculoskeletal: No joint pain, No muscle pain, No swelling Genitourinary - Male: No dysuria, No urinary retention, No hematuria Neurologic: No paralysis, No weakness, No numbness/tingling Integumentary: No rash, No itch, No color change General appearance: Well-developed, well-nourished, no apparent distress Head: Normocephalic, atraumatic Eyes: Normal inspection, PERRL, EOMI ENT: Normal ENT inspection, hearing grossly normal, pharynx normal Neck: Supple, no JVD, trachea midline Respiratory/Chest: +Crackles improved. Normal breath sounds, no respiratory distress Cardiovascular: Regular rate & rhythm, no gallop, no murmur Abdomen/GI: Normal bowel sounds, non-tender, soft Extremities/Musculoskeletal: Normal inspection, no calf tenderness, no pedal edema Neurological/Psych: Alert, normal mood/affect, oriented x 3 Skin: Normal color, warm/dry, no rash Hospital Course 77 y/o male with a history of recent GI bleed a few days ago, HTN, HLD, asthma, hypothyroidism, depression, BPH, and GERD who presents with bright red blood per rectum. Pt had recent lower GI bleed 01/29 but no source was identified on colonoscopy completed 01/31. GI bleed recurrence--resolving -Stable, admit to med/surg -GI consulted, appreciate recs: Spoke to Elijah Brown of GI. This smaller bleed likely related to first bleed one week ago, can present biphasically. Recommend recheck Hgb on Thursday. If bleeding recurs, pt is to call PCP and have Hgb rechecked. If there is significant bleeding again, pt could have IR embolization -Script for CBC recheck on Thursday provided, results to be forwarded to PCP -Tolerating low fiber diet -Hgb 10.9 on 02/05, down from 11.2 -Avoid NSAID use HTN, HLD--stable -Can resume ASA per GI -Continue amlodipine 5 mg PO qd, Lipitor 20 mg PO hs Asthma -Continue Symbicort BID and Singulair Hypothyroidism -Continue Synthroid 100 mcg PO qd Depression -Continue Zoloft 100 mg PO qd GERD -Prilosec converted to Protonix DVT prophylaxis -Hold chemical ppx due to GIB -SCDs Code Status -Level I, FULL RESUSCITATION STATUS Dispo -From home Total Time Spent: Greater than 30 minutes This includes examination of the patient, discharge planning, medication reconciliation, and communication with other providers. Discharge Instructions Please refer to the electronic Patient Visit Report (Discharge Instructions) for additional information. Additional Copies To Estevan Trejo M.D.
== END 2018-02-05 13:35 | disposition home or self-care (01) ==
LOC: C.EDB 11:29 → C.MSN 13:40 → ENRESERV 13:56
PROVIDERS: ADMIT Internal Medicine; ATTEND Internal Medicine
DX: K92.2 Gastrointestinal hemorrhage, unspecified (principal); I10 Essential (primary) hypertension; E78.5 Hyperlipidemia, unspecified; E03.9 Hypothyroidism, unspecified; F32.9 Major depressive disorder, single episode, unspecified; N40.0 Benign prostatic hyperplasia without lower urinary tract symptoms; K21.9 Gastro-esophageal reflux disease without esophagitis; K57.90 Diverticulosis of intestine, part unspecified, without perforation or abscess without bleeding; J45.909 Unspecified asthma, uncomplicated; Z79.899 Other long term (current) drug therapy; Z79.82 Long term (current) use of aspirin; Z98.49 Cataract extraction status, unspecified eye; Z98.890 Other specified postprocedural states

== ENCOUNTER → 2018-02-08 | Outpatient (CLI) | payer OTHER ==
[~2018-02-08] MED LIST changes: +SERT-234 PO; -SERT50TA PO; +SNG10 PO
[2018-02-08 17:58] LABS: BASO % 0.8 %; BASO ABS # 0.09 K/uL (0-0.2); EOS % 3.4 %; EOS ABS # 0.36 K/uL (0-0.5); HEMATOCRIT 32.7 % (42-52); HEMOGLOBIN 11.3 g/dL (14.0-18.0); IG# 0.11 K/uL (0.00-0.02); LYMPH % 25.9 %; LYMPH ABS # 2.77 K/uL (1.2-3.4); MEAN CELL VOLUME 91.3 fL (80-100); MEAN CORPUSCULAR HEMOGLOBIN 31.6 pg (25-34); MEAN CORPUSCULAR HGB CONC 34.6 g/dl (32-36); MEAN PLATELET VOLUME 8.4 fL (7.4-10.4); MONO ABS # 0.86 K/uL (0.11-0.59); NEUT % 60.9 %; NEUT ABS # 6.52 K/uL (1.4-6.5); PLATELET COUNT 435 K/uL (130-400); RED CELL DISTRIBUTION WIDTH CV 13.8 % (11.5-14.5); RED CELL DISTRIBUTION WIDTH SD 44.9 fL (36.4-46.3); WHITE BLOOD COUNT 10.71 K/uL (4.8-10.8)
== END | disposition home or self-care (01) ==
LOC: C.LABMFLN 16:36
PROVIDERS: ATTEND Family Medicine
DX: D50.0 Iron deficiency anemia secondary to blood loss (chronic) (principal)